=== PATIENT | female | born 1955 | race Caucasian/White ===

== ENCOUNTER → 2018-05-23 13:18 | Outpatient (CLI) | payer OTHER, SELFPAY ==
--- NOTE | 2018-05-23 13:26 | BI_ITS ---
MAMMOGRAPHY - BILATERAL DIAGNOSTIC REASON FOR EXAM: Female, 62 years old. Subcutaneous lump PERTINENT HISTORY: Mother and aunt with breast cancer TECHNIQUE: Digital examination. Mediolateral oblique (MLO) and craniocaudad (CC) views of both breasts were obtained, along with 3-D, tomosynthesis. CAD: CAD was performed on this study. COMPARISON: 07/18/2017 FINDINGS: Breast Composition: There are scattered areas of fibroglandular density. There are no dominant masses or suspicious calcifications. No other significant abnormalities are identified. BI/DIAG MAMM W/CAD, BILAT IMPRESSION: Negative diagnostic mammogram. Yearly followup recommended. ASSESSMENT CATEGORY: BIRADS Category 2: Benign. A letter regarding these results will be sent to the patient by the facility within 30 days. FOLLOW UP RECOMMENDATION: Yearly follow up mammogram recommended. (A) Approximately 10% of breast cancers are not detected by mammography. A normal mammogram should not delay biopsy of a clinically suspicious abnormality. Electronically Signed: Rajeev Garcia MD at 15:15 EDT , Service support ,
== END ==
PROVIDERS: Family Provider Nurse Practitioner; PCP Nurse Practitioner; Visit Provider Nurse Practitioner
DX: N63.11 Unspecified lump in the right breast, upper outer quadrant (principal)
CPT/HCPCS: 77062; 77066; G0279

== ENCOUNTER 2019-03-15 09:05 | Inpatient (IN) | payer OTHER, SELFPAY ==
[2019-03-15] VITALS (22 sets, daily range): BP systolic 88–131; BP diastolic 31–70; PULSE 80–110; RESP 18–38; TEMP 36.1–39.3; O2SAT 91–99; BMI 50.9; BMI 54.7
--- NOTE | 2019-03-15 09:28 | EKG12_ITS ---
Test Reason : SOB Blood Pressure : / mmHG Vent. Rate : 087 BPM Atrial Rate : 087 BPM P-R Int : 166 ms QRS Dur : 128 ms QT Int : 388 ms P-R-T Axes : 073 -12 101 degrees QTc Int : 466 ms Normal sinus rhythm Left bundle branch block Abnormal ECG Confirmed by ARMAND OLIVAS, ANSHU ([id number]), script editor MARIA INES DONALDSON ([id number]) on 03/17/2019 4:02:33 PM Referred By: VIKY Confirmed By:ANSHU ACUNA MD
--- NOTE | 2019-03-15 09:28 | CT_ITS ---
STUDY: CT ABDOMEN AND PELVIS WITHOUT CONTRAST REASON FOR EXAM: Female, 63 years old. Shortness of breath RADIATION DOSAGE (If Supplied By Facility): DLP = ( 1816.22 ) mGycm TECHNIQUE: Transaxial images were obtained from the dome of the diaphragm to the symphysis pubis without oral contrast, and without intravenous contrast. Sagittal and coronal images were reconstructed. Individualized dose optimization techniques were used for this CT. COMPARISON: CT abdomen and pelvis May 26, 2016 FINDINGS: Evaluation of the abdominal viscera is limited in the absence of intravenous contrast. There is a large ventral abdominal hernia. The visualized lung bases are clear. The visualized portions of the heart and pericardium are within normal limits. There are no calcified gallstones present. There is decreased hepatic attenuation. No hepatic lesions are present. The spleen is normal in size. The pancreas demonstrates an unremarkable unenhanced appearance. The adrenal glands are within normal limits. There are no obstructing renal stones. There is no hydronephrosis. Normal visualized stomach. There is no bowel obstruction or inflammation. The appendix is not visualized, but there are no findings to suggest acute appendicitis. The aorta is normal in caliber. There is no abdominal or pelvic free air, free fluid, fluid collection or lymphadenopathy. There are no destructive osseous lesions. CT/Abdomen/Pelvis without Cont IMPRESSION: Fatty liver. No hepatic lesions present. Large ventral abdominal hernia. Electronically Signed: Elio Kelly, at 10:53 EDT Tel , Service support ,
[2019-03-15] MEDS: Ondansetron 4 MG/2 ML Vial IV ×2 (09:50→12:27)
[2019-03-15] MEDS: 0.9% Normal Saline 1,000 ML 150 ML IV (09:50)
[2019-03-15] MEDS: 0.9% Normal Saline 1,000 ML 1000 ML IV ×2 (09:50→18:40)
[2019-03-15 10:06] LABS: D-Dimer Quantitative (DVT/PE) 1.97 FEU/ug/m (0.27-0.49)
[2019-03-15 10:26] LABS: Absolute Lymphocyte Count 0.38 X10^3/ul (0.83-4.51); Absolute Neutrophil Count 7.2 X10^3/uL (2.0-7.7); Differential Indicated SCAN CRITERIA MET; Eosinophil# 0.64 X10^3/uL; Eosinophils% 7.7 % (0-5); Hematocrit 44.1 % (37-47); Hemoglobin 14.6 g/dl (12.0-15.0); Lymphocyte # 0.38 X10^3/ul (4.0); Lymphocyte % 4.6 % (19-41); Mean Corp Hgb Conc 33.1 g/gl (32-36); Mean Corpuscular Hgb 31.5 pg (27.0-32.0); Monocyte# 0.08 X10^3/uL; Neutrophil % 86.7 % (47-70); POSITIVE COUNT NO; POSITIVE DIFFERENTIAL YES; POSITIVE MORPHOLOGY NO; Platelet Count 167 K/mm3 (150-450); RBC Distribution Width CV 13.2 % (11.6-14.6); RBC Distribution Width SD 45.9 fl (35.1-43.9); Red Blood Count 4.64 M/mm3 (4.2-5.4); White Blood Count 8.3 K/mm3 (4.4-11.0)
[2019-03-15 10:33] LABS: Anion Gap 7 (5-15); BUN 15 mg/dL (7-18); BUN/Creat Ratio 15.2 RATIO (10-20); Calcium,Total 8.4 mg/dL (8.5-10.1); Chloride 103 mmol/L (98-107); Creatinine, Serum 0.99 mg/dL (0.55-1.02); EST Glomerular Filtration Rate 61 mL/min (>60); Est Glom Filt Rate - Afr Amer 73 mL/min (>60); Estimated Creatinine Clearance 59.44 ml/min; Glucose 197 mg/dL (74-106); Potassium 3.7 mmol/L (3.5-5.1); Sodium Level 139 mmol/L (136-145)
--- NOTE | 2019-03-15 10:36 | CT_ITS ---
STUDY: CTA CHEST REASON FOR EXAM: Female, 63 years old. Shortness of breath RADIATION DOSAGE (If Supplied By Facility): CTDIvol = ( 19.74 ) mGy, DLP = ( 789.36 ) mGycm TECHNIQUE: The examination was performed with the intravenous administration of 100 IV Isovue 370. Post-processing of the angiographic images was performed, with multiplanar reformation and 3D reconstruction. Individualized dose optimization techniques were used for this CT. COMPARISON: None. FINDINGS: Normal enhancement of the main pulmonary artery and right and left pulmonary arteries. Normal enhancement of the bilateral peripheral pulmonary arteries. There is no demonstrated pulmonary embolism. Normal thoracic aorta and visualized great vessels. There is no demonstrated aortic dissection. Normal heart and pericardium. Normal mediastinum. Normal hilar regions. Normal visualized trachea and bronchi. The lungs are well expanded. Normal pulmonary parenchyma. Areas of left lower lobe atelectasis are present. Normal pleura. Normal chest wall structures. Normal osseous structures. Normal visualized upper abdomen. CT/CTA Chest W/WO Contrast IMPRESSION: Normal CTA chest examination, without a demonstrated pulmonary embolism or arterial dissection. Electronically Signed: Elio Kelly, at 11:30 EDT Tel , Service support ,
[2019-03-15 10:53] LABS: Lactic Acid 3.5 mmol/L (0.4-2.0)
[2019-03-15] MEDS: Acetaminophen 500 MG Tablet 1000 MG PO (11:14)
[2019-03-15 11:37] LABS: Mucous, Urine 0 SEEN /hpf (<or=2+)
[2019-03-15 11:45] LABS: Color, Urine Yellow (Yellow); Glucose, Dipstick Normal (Normal); Ketone-Dipstick Negative (Negative); Leukocyte Esterase-Dipstick 100 /ul (Negative); Nitrite-Dipstick Positive (Negative); Occult Blood-Urine 10 /ul (Negative); Protein-Dipstick 30 mg/dl (Negative); Urine Bilirubin Dipstick Negative (Negative); Urine Clarity Sl. Cloudy (Clear); Urine Urobilinogen Normal (Normal)
[2019-03-15] MEDS: 0.9% Normal Saline 1,000 ML 999 ML IV ×3 (11:58→12:51)
[2019-03-15 12:00] LABS: Bacteria 1+ /hpf (None Seen); Red Blood Cells-Urine 0-5 SEEN /hpf (0-5); Squamous Epithelial Cells - UA 0-5 SEEN /hpf (5-10); White Blood Cells 10-25 SEEN /hpf (0-5)
[2019-03-15] MEDS: Ceftriaxone 1 GM/50 ML BAG IV (12:28)
--- NOTE | 2019-03-15 12:50 | ED.RN ---
FLUID BOLUS OF 4500ML GIVEN TO TREAT HYPOTENSION AND SEPSIS.
--- NOTE | 2019-03-15 12:56 | ED.VISSUMM ---
- ER Visit Summary Date of Service: 03/15/19 Chief Complaint: Shortness of breath, UTI History of Present Illness: The patient is a 63 F whose had UTI for the past 6 weeks or so. She is currently on her third antibiotic. Cultures have been done through her doctor's office which are not available to review at this time. Patient complains of body aches and chills. This morning she had an episode of shortness of breath. She denies cough or chest pain. Physical Examination: Blood pressure is 108/70, temperature 97, heart rate 110, respiratory rate 38, pulse ox 91% on room air. Patient sitting upright in bed. She has chills. Heart is regular rate and rhythm in the 90s at the time of my exam. Lung sounds are grossly clear. Abdomen is soft with minimal tenderness in the suprapubic area. Hypoactive bowel sounds noted. No skin rash or lesions noted. Neuro exam is unremarkable. Test Results: CBC was normal white count with 86% neutrophils. Chemistry studies significant for glucose of 197. Troponin is negative. D-dimer is 1.97. Lactic acid is 3.5. CT the abdomen and pelvis shows fatty liver with ventral abdominal hernia. CTA of the chest is unremarkable. Emergency Department Course and Treatment: After returning from CT patient did drop her blood pressure and had a temperature of 102. She was given Tylenol. IV fluid boluses been ordered. She is now had 2 blood pressure readings with diastolic pressure over 100. Clinically the patient looks improved. She is been given IV Rocephin and blood and urine cultures have been sent. Treatment Plan: [] Disposition: Admit Impression: 1. Cystitis 2. Severe sepsis This note was generated with [employer] dictation software. It may contain incorrect words, spelling, and punctuation that were not noted in review of the chart prior to signing ED Disposition - Plan for ED Patient: Referrals: Jolie Delatorre, JOLENE-C [Primary Care Provider] -
--- NOTE | 2019-03-15 13:06 | PCM.HP.STD ---
Problem List (1) HLD (hyperlipidemia) Status: Acute (2) HTN (hypertension) Status: Chronic (3) Sepsis secondary to UTI Status: Acute (4) Morbid obesity with BMI of 50.0-59.9, adult Status: Acute (5) Diabetes Status: Chronic History of Present Illness Date of Admission: 03/15/19 Chief Complaint: Shortness of breath and UTI The patient is a 63 year old F with PMH as below who presents to the hospital with fevers, chills, and shortness of breath. She states she has had a UTI for the past 6 weeks and is currently on her third antibiotic. She states that she has had urine cultures at her doctor's office which we do not have access to, however I presume that the antibiotics have been appropriate for the organisms grown on her first 2 UTIs, however this last one was obtained on and it appears that the Macrobid she was given was an empiric antibiotic choice. Initially when she presented to the ER she was afebrile, tachycardic, tachypneic without a leukocytosis. She did end up developing a fever, and she was found to have a lactic acid of 3.5, she was given 3 L of normal saline in the ER as well as a dose of Rocephin. Blood and urine cultures have been obtained. She did have an elevated d-dimer and given her shortness of breath underwent a CTA of her chest which was negative for PE, she also had a CT scan of her abdomen and pelvis which was negative for any intra-abdominal pathology Past Medical History Past Medical History (Chronic Problems): Chronic Problems HTN (hypertension) (Chronic) Diabetes (Chronic) Allergies No Known Allergies Allergy (Verified 03/15/19 09:07) Home Medications: Ambulatory Orders Medication Instructions Recorded Multivitamins,Therapeutic 1 tablet PO BID 09/10/14 [Multivitamin] Aspirin [Aspirin, Baby] 81 mg PO DAILY@0800 03/15/19 Flaxseed Oil 1,000 mg PO DAILY 03/15/19 Krill Oil 1,000 mg PO DAILY 03/15/19 L.acidoph,Paracasei, B.lactis 1 each PO TID 03/15/19 [Probiotic] Lisinopril [Zestril] 5 mg PO DAILY 03/15/19 Metformin(XR) [Glucophage Xr] 500 mg PO BID 03/15/19 Rosuvastatin Calcium 10 mg PO QHS 03/15/19 Vitamin E 400 unit PO DAILY 03/15/19 Surgical History: total knee arthroplasty - Bilateral Smoking Status: Never smoker Alcohol: None Drugs: None - *Family History Maternal History Items: COPD, Diabetes, Heart Disease Paternal History Items: Diabetes, Heart Disease Review of Systems Constitutional: Reports: Chills, Fever. Denies: Weight Change HEENT: Denies: Head Aches, Sinus Congestion, Sinus Drainage Cardiovascular: Denies: Chest Pain, Palpitations Respiratory: Reports: Shortness of Breath. Denies: Cough, Shortness of breath at rest, Sputum production Gastrointestinal: Denies: Abdominal Pain, Nausea, Vomiting Genitourinary: Reports: Dysuria Musculoskeletal: Denies: Joint Pain, Joint Tenderness Skin: Denies: Rash, Wounds Neurological: Denies: Numbness, Tingling, Focal weakness Psychiatric: Denies: Anxiety, Depression Hematologic/ Lymphatic: Denies: Easy Bruising, Easy Bleeding VTE Information - Inpt Only VTE Present on Admission: No Patient Problems: Active and Suspected Problems HLD (hyperlipidemia) (Acute) Sepsis secondary to UTI (Acute) Morbid obesity with BMI of 50.0-59.9, adult (Acute) - Physical Exam General: Alert, Oriented x3, Cooperative, No apparent distress, - - Diaphoretic HEENT: Atraumatic, PERRLA, EOMI, Normocephalic Oral: Dry Mucosa Neck: Supple, No JVD Lungs: Clear to auscultation, Normal air movement, No rhonchi, No wheeze, No rales Cardiovascular: Regular rate, Regular Rhythm, Normal S1, Normal S2, No murmurs Abdomen: Soft, Non Tender, Non-Distended, No Hepato-splenomegaly, Obese - BMI of 50.9 Extremities: No edema, Capillary Refill Less than 3 Seconds Skin: No rashes, No breakdown Neurological: Neuro grossly intact, Sensory exam intact to light touch and pain Psych/Mental Status: Normal Affect, Appropriate Vital Signs Temp Pulse Resp BP Pulse Ox 99.1 F 90 25 H 102/55 L 97 03/15/19 13:00 03/15/19 13:00 03/15/19 13:00 03/15/19 13:00 03/15/19 13:00 Oxygen Flow Rate (L/min) 2 Oxygen Delivery Method Nasal Cannula Weight: 335 lb Body Mass Index (BMI) 50.9 Finger Stick Blood Glucose 126 Laboratory Tests Past 24 Hrs 03/15/19 03/15/19 03/15/19 05:46 05:46 09:46 WBC 8.3 RBC 4.64 Hgb 14.6 Hct 44.1 MCV 95.0 MCH 31.5 MCHC 33.1 RDW 13.2 RDW Differential 45.9 H Plt Count 167 MPV 10.0 Immature Gran % (Auto) 0.000 Neut % (Auto) 86.7 H Lymph % (Auto) 4.6 L [place] % (Auto) 1.0 Eos % (Auto) 7.7 H Baso % (Auto) 0.0 Absolute Neuts (auto) 7.2 Absolute Lymphs (auto) 0.38 L Total Counted Not Reportable D-Dimer Quant (PE/DVT) Sodium Potassium Chloride Carbon Dioxide Anion Gap BUN Creatinine Estim Creat Clear Calc Est GFR (MDRD) Af Amer Est GFR (MDRD) Non-Af BUN/Creatinine Ratio Glucose Lactic Acid 3.5 H Calcium Troponin I Urine Color Urine Clarity Urine pH Ur Specific [place] Urine Protein Urine Glucose (UA) Urine Ketones Urine Occult Blood Urine Nitrite Urine Bilirubin Urine Urobilinogen Ur Leukocyte Esterase Urine RBC Urine WBC Ur Squamous Epith Cells Urine Bacteria Urine Mucus 03/15/19 03/15/19 03/15/19 09:46 09:46 11:30 WBC RBC Hgb Hct MCV MCH MCHC RDW RDW Differential Plt Count MPV Immature Gran % (Auto) Neut % (Auto) Lymph % (Auto) [place] % (Auto) Eos % (Auto) Baso % (Auto) Absolute Neuts (auto) Absolute Lymphs (auto) Total Counted D-Dimer Quant (PE/DVT) 1.97 H* Sodium 139 Potassium 3.7 Chloride 103 Carbon Dioxide 29.0 Anion Gap 7 BUN 15 Creatinine 0.99 Estim Creat Clear Calc 59.44 Est GFR (MDRD) Af Amer 73 Est GFR (MDRD) Non-Af 61 BUN/Creatinine Ratio 15.2 Glucose 197 H Lactic Acid Calcium 8.4 L Troponin I < 0.015 Urine Color Yellow Urine Clarity Sl. Cloudy Urine pH 5.0 Ur Specific [place] 1.010 Urine Protein 30 H Urine Glucose (UA) Normal Urine Ketones Negative Urine Occult Blood 10 H Urine Nitrite Positive H Urine Bilirubin Negative Urine Urobilinogen Normal Ur Leukocyte Esterase 100 H Urine RBC 0-5 SEEN Urine WBC 10-25 SEEN Ur Squamous Epith Cells 0-5 SEEN Urine Bacteria 1+ Urine Mucus 0 SEEN Assessment/Plan All Active Problems HLD (hyperlipidemia) (Acute) Sepsis secondary to UTI (Acute) Morbid obesity with BMI of 50.0-59.9, adult (Acute) Status post total knee replacement (Acute) Constipation due to pain medication (Acute) Pain due to total left knee replacement (Acute) 1. Sepsis secondary to UTI -She states that this is her third UTI in 6 weeks -She is currently on Macrobid for her doctor's office -unable to obtain medical records or see what the culture data is -Continue with IV fluids at 125 cc/h -Rocephin daily -Urine culture pending -Lactate was 3.5 on admission will follow 2. HTN/HLD -Can restart her statin but will hold her blood pressure medication until she is more stable and her sepsis has resolved -SBP greater than 100 we will continue to monitor -Continue with aspirin 3. DM2/morbid obesity -We will place on Accu-Cheks before meals at bedtime, will hold her metformin in light of her lactic acidosis -Long-acting insulin 10 units nightly as well as a sliding scale insulin -Discussed with her lifestyle modifications for her morbid obesity DVT: Lovenox Code Visit Inpatient E&M: 90046 Init Hosp L3
[2019-03-15 13:51] LABS: Reflex Lactate? Y
[2019-03-15 15:27] LABS: Lactic Acid 1.9 mmol/L (0.4-2.0)
[2019-03-15 15:30] LABS: Bedside Glucose 166 mg/dL (70-110)
[2019-03-15] MEDS: Insulin Lispro 100 UNIT/ML INSULN.PEN SQ ×2 (16:47→21:58)
[2019-03-15] MEDS: Ceftriaxone 1 GM/50 mL Premix x1 IV (17:00)
--- NOTE | 2019-03-15 17:16 | NURSING ---
ed re chronic illness deferred till pt fever under control
[2019-03-15] MEDS: Acetaminophen 325 MG Tablet 650 MG PO (18:11)
[2019-03-15] MEDS: Atorvastatin Calcium 20 MG Tablet PO (21:53)
[2019-03-15 22:11] LABS: Bedside Glucose 178 mg/dL (70-110)
[2019-03-16] VITALS (13 sets, daily range): BP systolic 98–131; BP diastolic 50–71; PULSE 79–86; RESP 18–19; TEMP 36.7–37.3; O2SAT 92–97
[2019-03-16] MEDS: 0.9% Normal Saline 1,000 ML 125 ML IV (00:46)
[2019-03-16] MEDS: Acetaminophen 325 MG Tablet 650 MG PO (03:24)
[2019-03-16 06:33] LABS: Absolute Lymphocyte Count 0.51 X10^3/ul (0.83-4.51); Absolute Neutrophil Count 6.2 X10^3/uL (2.0-7.7); Basophil# 0.01 X10^3/uL; Basophil% 0.1 % (0-1); Eosinophil# 1.22 X10^3/uL; Eosinophils% 14.9 % (0-5); Hematocrit 36.8 % (37-47); Hemoglobin 11.9 g/dl (12.0-15.0); Lymphocyte # 0.51 X10^3/ul (4.0); Lymphocyte % 6.2 % (19-41); Mean Corp Hgb Conc 32.3 g/gl (32-36); Mean Corpuscular Hgb 30.4 pg (27.0-32.0); Mean Corpuscular Volume 94.1 fL (81-99); Mean Platelet Vol. 10.5 fl (6.2-12.0); Monocyte# 0.27 X10^3/uL; Monocyte% 3.3 % (0-10); Neutrophil # 6.19 X10^3/uL (2.7-7.7); Neutrophil % 75.4 % (47-70); Platelet Count 169 K/mm3 (150-450); RBC Distribution Width CV 13.6 % (11.6-14.6); Red Blood Count 3.91 M/mm3 (4.2-5.4); White Blood Count 8.2 K/mm3 (4.4-11.0)
[2019-03-16 06:36] LABS: Bedside Glucose 142 mg/dL (70-110)
[2019-03-16 06:45] LABS: Differential Indicated SCAN CRITERIA MET; POSITIVE COUNT NO; POSITIVE DIFFERENTIAL YES; POSITIVE MORPHOLOGY NO
[2019-03-16 07:03] LABS: Differential Comment SCANNED
[2019-03-16 07:33] LABS: Anion Gap 8 (5-15); BUN 14 mg/dL (7-18); BUN/Creat Ratio 18.2 RATIO (10-20); Calcium,Total 7.2 mg/dL (8.5-10.1); Chloride 108 mmol/L (98-107); Creatinine, Serum 0.77 mg/dL (0.55-1.02); EST Glomerular Filtration Rate 81 mL/min (>60); Est Glom Filt Rate - Afr Amer 98 mL/min (>60); Estimated Creatinine Clearance 76.42 ml/min; Glucose 148 mg/dL (74-106); Potassium 3.6 mmol/L (3.5-5.1); Sodium Level 139 mmol/L (136-145)
--- NOTE | 2019-03-16 08:07 | PN_ITS ---
Patient Problems: Active and Suspected Problems HLD (hyperlipidemia) (Acute) Sepsis secondary to UTI (Acute) Morbid obesity with BMI of 50.0-59.9, adult (Acute) Subjective: She is much better today, her sepsis has resolved. She is sitting up in the chair eating breakfast. Vitals/I&O's: Vital Signs Temp Pulse Resp BP Pulse Ox 99.2 F H 83 18 98/56 L 92 03/16/19 05:39 03/16/19 03:21 03/16/19 03:21 03/16/19 03:21 03/16/19 03:21 Oxygen Flow Rate (L/min) 2 Oxygen Delivery Method Room Air Weight: 360 lb Body Mass Index (BMI) 54.7 Finger Stick Blood Glucose 126 Intake and Output for Last 24 Hours 03/14/19 03/15/19 03/16/19 23:59 23:59 23:59 Intake Total 5674 / 5674 3930 / 3930 Balance 5674 / 5674 3930 / 3930 General: Alert, Oriented x3, Cooperative, No apparent distress, HEENT: Atraumatic, PERRLA, EOMI, Normocephalic Oral: Dry Mucosa Neck: Supple, No JVD Lungs: Clear to auscultation, Normal air movement, No rhonchi, No wheeze, No rales Cardiovascular: Regular rate, Regular Rhythm, Normal S1, Normal S2, No murmurs Abdomen: Soft, Non Tender, Non-Distended, No Hepato-splenomegaly, Obese - BMI of 50.9 Extremities: No edema, Capillary Refill Less than 3 Seconds Skin: No rashes, No breakdown Neurological: Neuro grossly intact, Sensory exam intact to light touch and pain Psych/Mental Status: Normal Affect, Appropriate Laboratory Results 03/15/19 05:46: Total Counted Not Reportable 03/15/19 05:46: Lactic Acid 3.5 H 03/15/19 09:46: WBC 8.3, RBC 4.64, Hgb 14.6, Hct 44.1, MCV 95.0, MCH 31.5, MCHC 33.1, RDW 13.2, RDW Differential 45.9 H, Plt Count 167, MPV 10.0, Immature Gran % (Auto) 0.000, Neut % (Auto) 86.7 H, Lymph % (Auto) 4.6 L, [place] % (Auto) 1.0, Eos % (Auto) 7.7 H, Baso % (Auto) 0.0, Absolute Neuts (auto) 7.2, Absolute Lymphs (auto) 0.38 L 03/15/19 09:46: D-Dimer Quant (PE/DVT) 1.97 H* 03/15/19 09:46: Sodium 139, Potassium 3.7, Chloride 103, Carbon Dioxide 29.0, Anion Gap 7, BUN 15, Creatinine 0.99, Estim Creat Clear Calc 59.44, Est GFR (MDRD) Af Amer 73, Est GFR (MDRD) Non-Af 61, BUN/Creatinine Ratio 15.2, Glucose 197 H, Calcium 8.4 L, Troponin I < 0.015 03/15/19 11:30: Urine Color Yellow, Urine Clarity Sl. Cloudy, Urine pH 5.0, Ur Specific [place] 1.010, Urine Protein 30 H, Urine Glucose (UA) Normal, Urine Ketones Negative, Urine Occult Blood 10 H, Urine Nitrite Positive H, Urine Bilirubin Negative, Urine Urobilinogen Normal, Ur Leukocyte Esterase 100 H, Urine RBC 0-5 SEEN, Urine WBC 10-25 SEEN, Ur Squamous Epith Cells 0-5 SEEN, Urine Bacteria 1+, Urine Mucus 0 SEEN 03/15/19 13:26: Lactic Acid 1.9 03/15/19 15:24: POC Glucose 166 H 03/15/19 21:56: POC Glucose 178 H 03/16/19 05:30: Sodium 139, Potassium 3.6, Chloride 108 H, Carbon Dioxide 23.0, Anion Gap 8, BUN 14, Creatinine 0.77, Estim Creat Clear Calc 76.42, Est GFR (MDRD) Af Amer 98, Est GFR (MDRD) Non-Af 81, BUN/Creatinine Ratio 18.2, Glucose 148 H, Calcium 7.2 L 03/16/19 05:30: WBC 8.2, RBC 3.91 L, Hgb 11.9 L, Hct 36.8 L, MCV 94.1, MCH 30.4, MCHC 32.3, RDW 13.6, RDW Differential 45.0 H, Plt Count 169, MPV 10.5, Immature Gran % (Auto) 0.100, Neut % (Auto) 75.4 H, Lymph % (Auto) 6.2 L, [place] % (Auto) 3.3, Eos % (Auto) 14.9 H, Baso % (Auto) 0.1, Absolute Neuts (auto) 6.2, Absolute Lymphs (auto) 0.51 L, Total Counted Not Reportable, Differential Comment SCANNED 03/16/19 06:29: POC Glucose 142 H Current Medications Acetaminophen (Tylenol) 650 mg PO Q6H PRN PRN PRN Reason: Mild pain 1-3/Temp > 100.7 F Last Admin: 03/16/19 03:24 Dose: 650 mg Aspirin (Aspirin, Baby) 81 mg PO DAILY@0800 KARLY Atorvastatin Calcium (Lipitor) 20 mg PO QHS [facility] Last Admin: 03/15/19 21:53 Dose: 20 mg Dextrose (D50w Syringe) 0 gm IV X1 PRN; Protocol PRN Reason: Hypoglycemia Enoxaparin Sodium (Lovenox) 40 mg SC DAILY@1000 KARLY Glucagon () 1 mg IM .X1 PRN PRN Reason: Hypoglycemia Sodium Chloride () 1,000 mls @ 125 mls/hr IV .Q8H [facility] Last Admin: 03/16/19 00:46 Dose: 125 mls/hr Ceftriaxone Sodium 2 gm/ (Sodium Chloride) 50 mls @ 100 mls/hr IV Q24 KARLY Ibuprofen (Motrin) 400 mg PO Q8H PRN PRN PRN Reason: FEVER Insulin Glargine (Lantus (Bkc)) 10 units SC QHS [facility] Last Admin: 03/15/19 21:57 Dose: 10 u Insulin Human Lispro (Humalog Kwikpen (Bkc)) 0 unit SQ ACHS [facility]; Protocol Last Admin: 03/16/19 06:30 Dose: Not Given Nutritional Formula (Lactose Free) (Glucerna Shake) 120 ml PO TIDCM [facility] Last Admin: 03/15/19 18:08 Dose: Not Given Ondansetron HCl (Zofran) 4 mg IV Q8H PRN PRN PRN Reason: NAUSEA/VOMITING Sodium Chloride () 5 - 15 ml IV UD PRN PRN Reason: SALINE FLUSH Medical Necessity - Tobacco Use Smoking Status: Never smoker Assessment/Plan All Active Problems HLD (hyperlipidemia) (Acute) Sepsis secondary to UTI (Acute) Morbid obesity with BMI of 50.0-59.9, adult (Acute) Status post total knee replacement (Acute) Constipation due to pain medication (Acute) Pain due to total left knee replacement (Acute) 1. Sepsis secondary to UTI -She states that this is her third UTI in 6 weeks -She was on Macrobid for her doctor's office -unable to obtain medical records or see what the culture data is -DC fluids allowed her to have a regular diet -Rocephin daily -Urine culture pending -Lactate was 3.5 on admission, repeat was 1.9 -Because she has had so frequent UTIs in the last several weeks, I discussed with her that if she would like to go home today on another empiric antibiotic and wait for cultures to result she could, however she would prefer to wait at least another day to receive another dose of antibiotics tomorrow and also hope by that point we have an identification and sensitivity. Also on Sunday her outpatient physician's office should be open and we may be able to get sensitivities from the urine culture that they had performed on prior to her admission. 2. HTN/HLD -Can restart her statin but will hold her blood pressure medication until she is more stable and her sepsis has resolved -SBP greater than 100 we will continue to monitor -Continue with aspirin 3. DM2/morbid obesity -We will place on Accu-Cheks before meals at bedtime, will hold her metformin in light of her lactic acidosis -Long-acting insulin 10 units nightly as well as a sliding scale insulin -Discussed with her lifestyle modifications for her morbid obesity DVT: Lovenox Code Visit Inpatient E&M: 09620 Subs Hosp L2
[2019-03-16] MEDS: Aspirin 81 MG TAB.CHEW PO (08:44)
[2019-03-16] MEDS: Enoxaparin 40 MG/0.4 ML Syringe SC (08:45)
[2019-03-16 11:46] LABS: Bedside Glucose 168 mg/dL (70-110)
[2019-03-16] MEDS: Insulin Lispro 100 UNIT/ML INSULN.PEN SQ ×3 (12:23→21:13)
--- NOTE | 2019-03-16 15:10 | NURSING ---
This RN taking over care for pt. Report received from ADAM Rose.
[2019-03-16 17:15] LABS: Bedside Glucose 232 mg/dL (70-110)
[2019-03-16 20:45] LABS: Bedside Glucose 218 mg/dL (70-110)
[2019-03-16] MEDS: Atorvastatin Calcium 20 MG Tablet PO (21:14)
[2019-03-17 01:59] VITALS: PULSE 73
[2019-03-17] MEDS: Acetaminophen 325 MG Tablet 650 MG PO (03:05)
[2019-03-17 03:16] VITALS: BP 121/63; PULSE 72; RESP 19; TEMP 36.8; O2SAT 98
[2019-03-17] MEDS: Insulin Lispro 100 UNIT/ML INSULN.PEN SQ (06:35)
[2019-03-17 06:57] VITALS: PULSE 71
[2019-03-17 07:26] LABS: Bedside Glucose 171 mg/dL (70-110)
[2019-03-17] MEDS: 0.9% NaCl Peripheral Flush Adult/Peds IV ×2 (08:09→09:19)
[2019-03-17] MEDS: Ondansetron 4 MG/2 ML Vial IV (08:10)
[2019-03-17] MEDS: Aspirin 81 MG TAB.CHEW PO (08:17)
[2019-03-17 09:05] VITALS: BP 134/57; PULSE 77; RESP 16; TEMP 36.6; O2SAT 97
[2019-03-17] MEDS: Enoxaparin 40 MG/0.4 ML Syringe SC (09:20)
--- NOTE | 2019-03-17 11:01 | DCINST_ITS ---
- Discharge Diagnoses Current Active Problems: Current Active and Chronic Problems HLD (hyperlipidemia) (Acute) HTN (hypertension) (Chronic) Sepsis secondary to UTI (Acute) Morbid obesity with BMI of 50.0-59.9, adult (Acute) You will use the following diet at home:: Calorie/Carbohydrate Controlled (specify 1200, 1400, etc) - 1800 tommy / day, Cardiac Your food should be the consistency of: Regular Your liquids should be the consistency of: Regular/Thin Discharge Activity: Return to Normal Activity Allergies/Adverse Reactions: Allergies No Known Allergies Allergy (Verified 03/15/19 09:07) Medications to take at Discharge Multivitamins,Therapeutic [Multivitamin] 1 tablet PO BID 09/10/14 Aspirin [Aspirin, Baby] 81 mg PO DAILY@0800 03/15/19 Flaxseed Oil 1,000 mg PO DAILY 03/15/19 Krill Oil 1,000 mg PO DAILY 03/15/19 L.acidoph,Paracasei, B.lactis [Probiotic] 1 each PO TID 03/15/19 Lisinopril [Zestril] 5 mg PO DAILY 03/15/19 Metformin(XR) [Glucophage Xr] 500 mg PO BID 03/15/19 Rosuvastatin Calcium 10 mg PO QHS 03/15/19 Vitamin E 400 unit PO DAILY 03/15/19 Primary Care Physician: Jolie Delatorre NP-C [Primary Care Provider] - Please follow up with your Primary Care Physician in: 1-2 weeks Test Results: Test results from this visit will be discussed in further detail at your follow- up appointment, if applicable. Proposed Discharge Date: 03/17/19
--- NOTE | 2019-03-17 11:11 | PHA.DC.MR ---
Pharmacy Service has performed discharge medication reconciliation for this patient. No new medications prescribed for homegoing use upon pharmacy review. Medications reviewed are previously reported home medications. The patient's discharge medication list was reviewed for discrepancies and discrepancies were resolved. Home Medications Multivitamins,Therapeutic [Multivitamin] 1 tablet PO BID 09/10/14 Aspirin [Aspirin, Baby] 81 mg PO DAILY@0800 03/15/19 Flaxseed Oil 1,000 mg PO DAILY 03/15/19 Krill Oil 1,000 mg PO DAILY 03/15/19 L.acidoph,Paracasei, B.lactis [Probiotic] 1 each PO TID 03/15/19 Lisinopril [Zestril] 5 mg PO DAILY 03/15/19 Metformin(XR) [Glucophage Xr] 500 mg PO BID 03/15/19 Rosuvastatin Calcium 10 mg PO QHS 03/15/19 Vitamin E 400 unit PO DAILY 03/15/19
--- NOTE | 2019-03-17 11:19 | CASEMGMT ---
RN CM Assessment Presentation: UTI Intro role of CM and purpose of RN CM assessment to patient in room. Demographics, PCP and Pharmacy verified. Pt states she is independent, lives with her sister. PCP: Jolie Chirinos NP [facility]erred [facility]acy[facility] Insurance: MMO Prescription Benefit: yes LNOK: sister Living Arrangements: pt did not elaborate but states she is independent, no care needs and no stairs in home. Transportation: drives, states no difficulty getting to physician f/u. DME: none HHC: none Patient DC goals: Home DC PLAN: Home. Saeid ORTEGA RN ACM
--- NOTE | 2019-03-17 15:12 | PCM.DC.SUM ---
<Chito Leyva - Last Filed: 03/17/19 15:12> Discharge Date and Diagnosis Date of Admission: 03/15/19 Date of Discharge: 03/17/19 - Primary Discharge Diagnosis Acute sepsis 2/2 UTI HTN HLD Morbid obesity DMt2 - Secondary Discharge Diagnosis Chronic Problems HTN (hypertension) (Chronic) Diabetes (Chronic) Hospital Course and Treatment Imaging Results: CT/Abdomen/Pelvis without Cont IMPRESSION: Fatty liver. No hepatic lesions present. Large ventral abdominal hernia. CT/CTA Chest W/WO Contrast IMPRESSION: Normal CTA chest examination, without a demonstrated pulmonary embolism or arterial dissection. Operations: None Procedures: None Summary of Care Provided: Hospital Course: The patient is a 63 year old F with pmhx as above recently see at Dr. Louie office and treated with 3 different abx for UTI, who presented to the ER with SOB, fevers, and chills. She did have a fever, tachypnea, and tachycardia, and + UA. D dimer was elevated and a CTA chest was obtained which was unremarkable. She was started on rocephin, urine culture obtained, and she was admitted to the PCU on tele for severe sepsis and UTI (SIRS + lactic acidosis). She responded well to abx. Symptoms completely resolved. Urine culture came back with insignificant growth and she had no further symptoms, so Abx were DCd and she was DCd home in stable condition. Follow up with PCP 1-2 weeks. This patient was seen by Chito Leyva PA-C under the supervision of Dr. Cruz [] - Physical Exam General: Alert, Oriented x3, Cooperative HEENT: Atraumatic, PERRLA, EOMI, Normocephalic Neck: Supple, No JVD, Negative Carotid Bruits Lungs: Clear to auscultation, Normal air movement Cardiovascular: Regular rate, No murmurs Abdomen: Bowel Sounds Present, Soft, Non Tender Extremities: No edema, Capillary Refill Less than 3 Seconds Skin: No rashes, No breakdown Musculoskeletal: No Tenderness to Palpation of Joints or Extremities Neurological: Cranial nerves II-XII grossly intact Psych/Mental Status: Normal Affect, Appropriate, Alert and oriented to time, place, person, mood and affect Vital Signs Temp Pulse Resp BP Pulse Ox 97.8 F 77 16 134/57 H 97 03/17/19 09:05 03/17/19 09:05 03/17/19 09:05 03/17/19 09:05 03/17/19 09:05 Oxygen Flow Rate (L/min) 2 Oxygen Delivery Method Room Air Weight: 359 lb 15.991 oz Body Mass Index (BMI) 54.7 Finger Stick Blood Glucose 126 Intake and Output for Last 24 Hours 03/15/19 03/16/19 03/17/19 23:59 23:59 23:59 Intake Total 5674 / 5674 4370 / 4370 500 / 500 Balance 5674 / 5674 4370 / 4370 500 / 500 Microbiology Past 72 Hours 03/15/19 05:46 Blood Culture - Preliminary Blood Culture (Wb) - Anticubital Left No growth in 48 hours. 03/15/19 11:30 Urine Culture - Final Urine, Clean Catch Mixed Gram Pos & Gram Neg Org POC Glucose 03/17/19 03/16/19 03/16/19 06:32 20:35 16:55 POC Glucose 171 H 218 H 232 H Discharge Diet: Low fat/ Low Cholesterol, 1800 Calorie Control Diet, 2000 mg Sodium Diet Discharge Activity: Return to Normal Activity Home Medications: Medications to take at Discharge Multivitamins,Therapeutic [Multivitamin] 1 tablet PO BID 09/10/14 Aspirin [Aspirin, Baby] 81 mg PO DAILY@0800 03/15/19 Flaxseed Oil 1,000 mg PO DAILY 03/15/19 Krill Oil 1,000 mg PO DAILY 03/15/19 L.acidoph,Paracasei, B.lactis [Probiotic] 1 each PO TID 03/15/19 Lisinopril [Zestril] 5 mg PO DAILY 03/15/19 Metformin(XR) [Glucophage Xr] 500 mg PO BID 03/15/19 Rosuvastatin Calcium 10 mg PO QHS 03/15/19 Vitamin E 400 unit PO DAILY 03/15/19 Primary Care Physician: Jolie Delatorre NP-C [Primary Care Provider] - Please follow up with your Primary Care Physician in: 1-2 weeks Disposition: Home Minutes spent on discharge:: 35 Patient Condition:: Stable Medical Necessity - Tobacco Use Smoking Status: Never smoker Meaningful Use Info Meaningful Use Diagnoses (Choose all that apply): None applicable <Byron Cruz - Last Filed: 03/17/19 15:36> Discharge Date and Diagnosis - Secondary Discharge Diagnosis Chronic Problems HTN (hypertension) (Chronic) Diabetes (Chronic) Hospital Course and Treatment Summary of Care Provided: This patient was seen in conjunction with Chito Leyva PA-C . I have independently interviewed and examined the patient and reviewed pertinent historical, laboratory, and other data. Please refer to Chito Leyva PA-C note for details of this patient's presentation, findings, and recommendations. I have reviewed Chito Leyva PA-C note and concur with documented findings. In brief, patient is 63-year-old lady admitted with fever and chills as well as shortness of breath CTA of the chest was negative for PE urinalysis was consistent with a UTI treated with Rocephin cultures however came back mixed organisms. Antibiotics discontinued Hospital course as documented above by Chito Leyva PA-C - Physical Exam Vital Signs Temp Pulse Resp BP Pulse Ox 97.8 F 77 16 134/57 H 97 03/17/19 09:05 03/17/19 09:05 03/17/19 09:05 03/17/19 09:05 03/17/19 09:05 Oxygen Flow Rate (L/min) 2 Oxygen Delivery Method Room Air Weight: 163.293 kg Body Mass Index (BMI) 54.7 Finger Stick Blood Glucose 126 Intake and Output for Last 24 Hours 03/15/19 03/16/19 03/17/19 23:59 23:59 23:59 Intake Total 5674 / 5674 4370 / 4370 500 / 500 Balance 5674 / 5674 4370 / 4370 500 / 500 Microbiology Past 72 Hours 03/15/19 05:46 Blood Culture - Preliminary Blood Culture (Wb) - Anticubital Left No growth in 48 hours. 03/15/19 11:30 Urine Culture - Final Urine, Clean Catch Mixed Gram Pos & Gram Neg Org POC Glucose 03/17/19 03/16/19 03/16/19 06:32 20:35 16:55 POC Glucose 171 H 218 H 232 H Code Visit Inpatient E&M: 21413 Disch Hosp
== END 2019-03-17 11:35 | disposition home or self-care (01) | DRG 872 ==
LOC: ED 09:56 → PCU 13:25
PROVIDERS: Admitting Provider Family Medicine; Emergency Provider Emergency Medicine; Family Provider Nurse Practitioner; PCP Nurse Practitioner; Visit Provider Internal Medicine
DX: A41.9 Sepsis, unspecified organism (principal); Z68.43 Body mass index [BMI] 50.0-59.9, adult; N39.0 Urinary tract infection, site not specified; E87.2 Acidosis; E66.01 Morbid (severe) obesity due to excess calories; E11.9 Type 2 diabetes mellitus without complications; I10 Essential (primary) hypertension; E78.5 Hyperlipidemia, unspecified; Z87.440 Personal history of urinary (tract) infections; Z79.84 Long term (current) use of oral hypoglycemic drugs; R65.20 Severe sepsis without septic shock
CPT/HCPCS: 36415; 71275; 74176; 80048; 81001; 82962; 83605; 84484; 85025; 85379; 87040; 87086; 87088; 93005; 97802; 99285; J7030; J7040; Q9967; A4216; J0696; J2405

== ENCOUNTER → 2019-05-27 17:46 | Outpatient (CLI) | payer OTHER, SELFPAY ==
[2019-03-15 14:38] VITALS: BMI 54.7
== END ==
PROVIDERS: Family Provider Nurse Practitioner; PCP Nurse Practitioner; Referring Provider Obstetrics & Gynecology; Visit Provider Obstetrics & Gynecology
DX: R30.0 Dysuria (principal)
CPT/HCPCS: 87077; 87086; 87088; 87186

== ENCOUNTER 2019-05-29 19:59 | Inpatient (IN) | payer OTHER, SELFPAY ==
[2019-03-15 14:38] VITALS: BMI 54.7
[2019-05-29 20:00] VITALS: BP 152/82; PULSE 117; RESP 18; TEMP 37.8; O2SAT 95; BMI 53.1
--- NOTE | 2019-05-29 20:27 | EKG12_ITS ---
Test Reason : CP Blood Pressure : / mmHG Vent. Rate : 095 BPM Atrial Rate : 095 BPM P-R Int : 162 ms QRS Dur : 126 ms QT Int : 366 ms P-R-T Axes : 070 -24 099 degrees QTc Int : 459 ms Normal sinus rhythm Left bundle branch block Abnormal ECG Confirmed by HARMONY OLIVAS, WAQAS ([id number]), editor sound MARIA INES DONALDSON ([id number]) on 06/02/2019 1:18:11 PM Referred By: Balaji Cruz Confirmed By:WAQAS ANTUNEZ MD
--- NOTE | 2019-05-29 20:30 | ED.DCSUM_ITS ---
History of Present Illness Chief Complaint: Complaint Informant: Patient, Family Onset: Yesterday Context: Sudden Onset Timing: Continuous Quality: Dysuria, dyspnea and cough Location: and respiratory Current Severity: Moderate Maximum Severity: Moderate Worsened by: Nothing Relieved by: Nothing Associated Symptoms: Shaking chills Narrative: Patient is a 63-year-old woman who presents with dysuria and vulvitis treated with nitrofurantoin and Diflucan. She does report shortness of breath and cough. She complains of thirst, dry mouth lightheadedness and shaking chills. She was recently admitted for severe sepsis secondary to urinary tract infection. She denies headache, visual, ocular auditory symptoms. She denies photophobia. Denies neck pain or neck stiffness. She denies chest discomfort. She has not checked her blood sugar in the last 24 hours. Prior similar symptoms: Yes Recent Illness/Hospitalization: Yes - Past Medical History (1) HLD (hyperlipidemia) Status: Acute (2) Morbid obesity with BMI of 50.0-59.9, adult Status: Acute (3) Sepsis secondary to UTI Status: Acute (4) Diabetes Status: Chronic (5) HTN (hypertension) Status: Chronic Past Medical History - Allergies and Home Meds Allergies/Adverse Reactions: Allergies No Known Allergies Allergy (Verified 05/29/19 20:00) Primary Care Physician: Jolie Delatorre NP-C [Primary Care Provider] - Prior records reviewed: Yes Surgical History: total knee arthroplasty - Bilateral Smoking Status: Never smoker Alcohol: None Drugs: None - Family History Maternal Family History: Reports: COPD, Diabetes, Heart Disease Paternal Family History: Reports: Diabetes, Heart Disease Review of Systems General: Reports: Chills, Fever, Malaise, Sweats. Denies: Subjective, Weight loss, - Eyes: Denies: Visual changes - bilaterally, Blurred Vision - bilaterally, Diplopia ENT: Denies: Bilateral ear pain, Rhinorrhea, Sore throat Cardiovascular: Denies: Chest pain, Palpitations Respiratory: Reports: Dyspnea, Cough, Dyspnea on exertion. Denies: Sputum, Orthopnea, Paroxysmal nocturnal dyspnea Gastrointestinal: Reports: Nausea. Denies: Abdominal pain, Vomiting, Diarrhea, Constipation, Melena, Hematochezia Genitourinary: Reports: Dysuria, Frequency Musculoskeletal: Reports: Myalgias, Arthralgias. Denies: Neck pain, Back pain, Swelling, Extremity Pain, -, - Skin: Denies: Rash, Wounds Neurological: Reports: Weakness. Denies: Headache, Parasthesia, Numbness, -, - Endocrine: Denies: Polyuria, Polydipsia, Heat intolerance, Cold intolerance, -, - Hematologic: Denies: Easy bruising, Easy bleeding, Lymphadenopathy, -, - Allergy: Denies: Uticaria, Swelling of the mouth, Swelling of the tongue, -, - Physical Exam Vital Signs/Narrative: Vital Signs Temp Pulse Resp BP Pulse Ox 05/29/19 20:00 100.0 F H 117 H 18 152/82 H 95 Inital Vital Signs reviewed: Yes General: Well nourished, Well developed, - - Lucy looks ill Head: Normocephalic, Atraumatic Eyes: Perrl, EOMI. Negative for: Pale conjunctiva, Scleral icterus, - ENT: No rhinorrhea, TM's clear, Dry mucous membranes Cardiovascular: Regular rhythm, No murmurs, Normal S1, Normal S2, Tachycardia Respiratory: CTA bilaterally, Chest nontender. Negative for: No distress Abdomen: Soft, Nontender, Nondistended, Normal bowel sounds Back: Nontender, Normal Inspection. Negative for: CVA tenderness Extremities: Nontender, No edema Skin: Normal color, No rash, No Trauma. Negative for: Cyanosis, Diaphoresis, Jaundice Neurological: Alert, Oriented x3, Cranial nerves II-XII grossly intact, Normal Strength, Normal Sensation Psychological: Normal affect, Normal Mood Diagnostic/Tx/Re-eval Impressions Chest X-Ray 05/29/19 21:40 IMPRESSION: Degenerative changes, as described above. No demonstrated acute cardiopulmonary process. There is no major interval change. Electronically Signed: Jc Rubio DO at 21:58 EDT Tel [phone], Service support , 05/29/19 21:40 Chest PA and Lateral [RAD] Stat Laboratory Results 05/29/19 05/29/19 05/29/19 20:54 20:54 20:54 WBC 12.0 H RBC 4.62 Hgb 14.5 Hct 44.3 MCV 95.9 MCH 31.4 MCHC 32.7 RDW Std Deviation 43.7 RDW Coeff of [place] 12.4 Plt Count 203 MPV 10.5 Immature Gran % (Auto) 0.500 Neut % (Auto) 93.8 H Lymph % (Auto) 3.4 L [place] % (Auto) 1.8 Eos % (Auto) 0.3 Baso % (Auto) 0.2 Absolute Neuts (auto) 11.2 H Absolute Lymphs (auto) 0.41 L Nucleated RBC % 0 Differential Comment SEE COMMENT Platelet Estimate ADEQUATE Anisocytosis RARE Macrocytosis RARE Ovalocytes RARE PT 13.2 INR 1.0 APTT 26.4 Sodium 139 Potassium 4.1 Chloride 105 Carbon Dioxide 28.0 Anion Gap 6 BUN 16 Creatinine 1.10 H Estim Creat Clear Calc 53.49 Est GFR (MDRD) Af Amer 65 Est GFR (MDRD) Non-Af 53 L BUN/Creatinine Ratio 14.5 Glucose 177 H Lactic Acid Calcium 8.8 Total Bilirubin 0.60 AST 23 ALT 37 Alkaline Phosphatase 85 Total Protein 7.2 Albumin 3.5 Globulin 3.7 Albumin/Globulin Ratio 0.9 Urine Color Urine Clarity Urine pH Ur Specific [place] Urine Protein Urine Glucose (UA) Urine Ketones Urine Occult Blood Urine Nitrite Urine Bilirubin Urine Urobilinogen Ur Leukocyte Esterase Urine RBC Urine WBC Ur Squamous Epith Cells Urine Bacteria Urine Mucus 05/29/19 05/29/19 20:54 Unknown WBC RBC Hgb Hct MCV MCH MCHC RDW Std Deviation RDW Coeff of [place] Plt Count MPV Immature Gran % (Auto) Neut % (Auto) Lymph % (Auto) [place] % (Auto) Eos % (Auto) Baso % (Auto) Absolute Neuts (auto) Absolute Lymphs (auto) Nucleated RBC % Differential Comment Platelet Estimate Anisocytosis Macrocytosis Ovalocytes PT INR APTT Sodium Potassium Chloride Carbon Dioxide Anion Gap BUN Creatinine Estim Creat Clear Calc Est GFR (MDRD) Af Amer Est GFR (MDRD) Non-Af BUN/Creatinine Ratio Glucose Lactic Acid 2.2 H Calcium Total Bilirubin AST ALT Alkaline Phosphatase Total Protein Albumin Globulin Albumin/Globulin Ratio Urine Color Yellow Urine Clarity Clear Urine pH 5.0 Ur Specific [place] 1.020 Urine Protein 30 H Urine Glucose (UA) 250 H Urine Ketones Negative Urine Occult Blood Negative Urine Nitrite Negative Urine Bilirubin Negative Urine Urobilinogen Normal Ur Leukocyte Esterase 25 H Urine RBC 0 SEEN Urine WBC 0-5 SEEN Ur Squamous Epith Cells 5-10 SEEN Urine Bacteria 0 SEEN Urine Mucus 0 SEEN Her and is not suggestive of infection. Urine culture from yesterday is growing gram-negative fermenting rods. Since patient has lactic acidosis does not appear well with elevated white count will admit for severe sepsis. - Medical Decision Making With fever, shaking chills, tachycardia concern for sepsis. Sepsis work-up was initiated. Chest x-ray was obtained to evaluate for pulmonary source. 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 Appropriate cultures were obtained. Will start on Rocephin for respiratory and urologic coverage. Since patient has fever, white count and abnormal vitals with source she has severe sepsis since her lactate is 2.2. She received 1 g of Rocephin IV piggyback and admitted to PCU ED Disposition - Plan for ED Patient: Disposition: Acute Care Hospital [facility] Diagnosis: Urinary tract infection, Severe sepsis Referrals: Jolie Delatorre, JOLENE-C [Primary Care Provider] -
[2019-05-29 20:46] LABS: Bacteria 0 SEEN /hpf (None Seen); Mucous, Urine 0 SEEN /hpf (<or=2+); Red Blood Cells-Urine 0 SEEN /hpf (0-5)
[2019-05-29 20:48] LABS: Color, Urine Yellow (Yellow); Glucose, Dipstick 250 mg/dl (Normal); Ketone-Dipstick Negative (Negative); Leukocyte Esterase-Dipstick 25 /ul (Negative); Nitrite-Dipstick Negative (Negative); Occult Blood-Urine Negative /ul (Negative); Protein-Dipstick 30 mg/dl (Negative); Urine Bilirubin Dipstick Negative (Negative); Urine Clarity Clear (Clear); Urine Urobilinogen Normal (Normal)
[2019-05-29 20:55] LABS: Squamous Epithelial Cells - UA 5-10 SEEN /hpf (5-10); White Blood Cells 0-5 SEEN /hpf (0-5)
[2019-05-29 20:59] VITALS: BP 108/57; PULSE 96; RESP 23; O2SAT 95
[2019-05-29 21:04] LABS: Absolute Lymphocyte Count 0.41 X10^3/uL (0.83-4.51); Absolute Neutrophil Count 11.2 X10^3/uL (2.0-7.7); Basophil# 0.02 X10^3/uL; Basophil% 0.2 % (0-1); Eosinophil# 0.03 X10^3/uL; Eosinophils% 0.3 % (0-5); Hematocrit 44.3 % (37-47); Hemoglobin 14.5 g/dL (12.0-15.0); Lymphocyte # 0.41 X10^3/ul (4.0); Lymphocyte % 3.4 % (19-41); Mean Corp Hgb Conc 32.7 g/dL (32-36); Mean Corpuscular Hgb 31.4 pg (27.0-32.0); Mean Corpuscular Volume 95.9 fL (81-99); Mean Platelet Vol. 10.5 fl (6.2-12.0); Monocyte# 0.22 X10^3/uL; Monocyte% 1.8 % (0-10); NRBC Flagged by Analyzer 0 % (0-5); Neutrophil # 11.23 X10^3/uL (2.7-7.7); Neutrophil % 93.8 % (47-70); POSITIVE DIFFERENTIAL YES; Platelet Count 203 K/mm3 (150-450); RBC Distribution Width CV 12.4 % (11.6-14.6); RBC Distribution Width SD 43.7 fl (35.1-43.9); Red Blood Count 4.62 M/mm3 (4.2-5.4)
[2019-05-29 21:10] LABS: Differential Indicated SCAN CRITERIA MET
[2019-05-29 21:14] LABS: Partial Thromboplast Time 26.4 Seconds (24.1-36.2); Prothrombin Time (Protime)PT. 13.2 SECONDS (11.7-14.9)
[2019-05-29 21:24] LABS: ALB/GLOB Ratio 0.9 RATIO (0.9-2.4); AST(SGOT) 23 U/L (15-37); Alanine Aminotransfer ALT/SGPT 37 U/L (13-56); Albumin, Serum 3.5 g/dL (3.2-5.0); Alkaline Phosphatase 85 U/L (45-117); Anion Gap 6 (5-15); BUN 16 mg/dL (7-18); BUN/Creat Ratio 14.5 RATIO (10-20); Calcium,Total 8.8 mg/dL (8.5-10.1); Chloride 105 mmol/L (98-107); EST Glomerular Filtration Rate 53 mL/min (>60); Est Glom Filt Rate - Afr Amer 65 mL/min (>60); Estimated Creatinine Clearance 53.49 ml/min; Globulin 3.7 g/dL (2.2-4.2); Glucose 177 mg/dL (74-106); Potassium 4.1 mmol/L (3.5-5.1); Protein, Total 7.2 g/dL (6.4-8.2); Sodium Level 139 mmol/L (136-145)
[2019-05-29] MEDS: Ceftriaxone 1 GM/50 ML BAG IV (21:27)
[2019-05-29] MEDS: 0.9% Normal Saline 1,000 ML 250 ML IV (21:27)
[2019-05-29 21:28] VITALS: BP 120/61; BP 132/65; PULSE 95; PULSE 96; RESP 24; TEMP 39; O2SAT 97; O2SAT 98
[2019-05-29 21:30] LABS: Anisocytosis RARE; Macrocytosis RARE; Ovalocyte RARE; Platelet Estimate ADEQUATE (ADEQ)
--- NOTE | 2019-05-29 21:40 | RAD_ITS ---
STUDY: X-RAY CHEST REASON FOR EXAM: Female, 63 years old. Urinary burning. Treated yesterday for UTI and colitis. Now complaining of chills and shortness of breath. TECHNIQUE: PA and lateral views of the chest. COMPARISON: CTA of the chest, March 15, 2019. Chest, August 19, 2015. FINDINGS: The lungs are clear and expanded. There is no demonstrated pleural abnormality. Normal size heart. Normal mediastinum and ion. Normal visualized pulmonary arteries. Normal visualized aortic arch and descending thoracic aorta. There are diffuse degenerative changes of the visualized thoracic spine. There is degenerative osteoarthritis of the bilateral shoulders. There is no demonstrated abnormality of the visualized soft tissue structures of the upper abdomen. RAD/Chest PA and Lateral IMPRESSION: Degenerative changes, as described above. No demonstrated acute cardiopulmonary process. There is no major interval change. Electronically Signed: Jc Rubio DO at 21:58 EDT Tel [phone], Service support ,
[2019-05-29 21:41] LABS: Lactic Acid 2.2 mmol/L (0.4-2.0)
[2019-05-29] MEDS: Ondansetron 4 MG/2 ML Vial IV (21:59)
[2019-05-29] MEDS: Acetaminophen 500 MG Tablet 1000 MG PO (21:59)
[2019-05-29 22:00] VITALS: BP 115/61; PULSE 93; PULSE 94; RESP 23; RESP 27; TEMP 39.6; O2SAT 97
[2019-05-29 23:09] VITALS: BMI 55.2
--- NOTE | 2019-05-29 23:19 | PCM.HP.STD ---
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 Prior to that, she was a started on nitrofurantoin for burning micturition about 2- 3 days ago and on 05/28 and started on Diflucan for vulvar itching. Currently she denies burning micturition, increased frequency urgency, vaginal/vulvar discharge. In ED, she was noted to have high fever T-max 103.3 Fahrenheit. Heart rate 117/min and pulse ox 95% on room air. Labs in ED shows leukocytosis 12,000 with neutrophil 93%. UA WBC 0-5, squamous epithelial 5-10, nitrite negative. LE 25. Chest x-ray does not show acute change. She has cough and shortness of breath for more than a week from URI which is getting better. He denies COPD or smoking history. Past Medical History Past Medical History (Chronic Problems): Chronic Problems HLD (hyperlipidemia) (Chronic) HTN (hypertension) (Chronic) Morbid obesity with BMI of 50.0-59.9, adult (Chronic) Constipation due to pain medication (Chronic) Diabetes (Chronic) Pain due to total left knee replacement (Chronic) Allergies No Known Allergies Allergy (Verified 05/29/19 20:00) Home Medications: Ambulatory Orders Medication Instructions Recorded Multivitamins,Therapeutic 1 tablet PO DAILY 09/10/14 [Multivitamin] Aspirin [Aspirin, Baby] 81 mg PO DAILY@0800 03/15/19 Flaxseed Oil 1,000 mg PO DAILY 03/15/19 Krill Oil 1,000 mg PO DAILY 03/15/19 L.acidoph,Paracasei, B.lactis 1 each PO TID 03/15/19 [Probiotic] Lisinopril [Zestril] 5 mg PO DAILY 03/15/19 Vitamin E 400 unit PO DAILY 03/15/19 metFORMIN (XR) [Glucophage Xr] 500 mg PO BID 03/15/19 Fluocinonide 1 applic TP BID PRN PRN 05/29/19 Nitrofurantoin Macrocrystals 100 mg PO BID 05/29/19 [Macrobid] Rosuvastatin Calcium 10 mg PO QHS 05/29/19 Surgical History: total knee arthroplasty - Bilateral Smoking Status: Never smoker Alcohol: None Drugs: None - *Family History Maternal History Items: COPD, Diabetes, Heart Disease Paternal History Items: Diabetes, Heart Disease Review of Systems Constitutional: Reports: Chills, Fever, Malaise, Weakness HEENT: Denies: Head Aches, Sinus Congestion, Sinus Drainage Cardiovascular: Denies: Chest Pain, Palpitations Respiratory: Reports: Cough, Shortness of Breath, Shortness of breath upon exertion. Denies: Shortness of breath at rest, Sputum production Gastrointestinal: Denies: Abdominal Pain, Nausea, Vomiting Genitourinary: Denies: Dysuria, Frequency Musculoskeletal: Reports: Back Pain, Joint Pain, Joint stiffness. Denies: Joint Tenderness Skin: Denies: Rash, Wounds Neurological: Reports: Balance problems. Denies: Focal weakness, Numbness, Tingling Psychiatric: Denies: Anxiety, Depression, Homicidal Ideations, Suicidal Ideations Hematologic/ Lymphatic: Denies: Easy Bruising, Easy Bleeding VTE Information - Inpt Only VTE Present on Admission: No VTE Mechan Device Prophylaxis: None VTE Pharm Prophylaxis ordered?: Yes Patient Problems: Active and Suspected Problems Urinary tract infection (Acute) Severe sepsis (Acute) - Physical Exam General: Alert, Oriented x3, Cooperative HEENT: Atraumatic, PERRLA, EOMI, Normocephalic Oral: Dry Mucosa Neck: Supple, No JVD, Negative Carotid Bruits Lungs: Clear to auscultation, No rhonchi, No wheeze, No rales, Diminished - Air entry is diminished probably secondary to morbid obesity Cardiovascular: Regular rate, Regular Rhythm, Normal S1, Normal S2, No murmurs Abdomen: Bowel Sounds Present, Soft, Non Tender, Non-Distended, Hernia - Incisional hernia present, - - Butler catheter inserted in ED. No pus flecks present in urine tube. Although urine looks cloudy. Extremities: Capillary Refill Less than 3 Seconds, Edema Skin: No rashes, No breakdown Musculoskeletal: No Tenderness to Palpation of Joints or Extremities, Arthritic Changes Neurological: Cranial nerves II-XII grossly intact, Deep Tendon Reflexes 2+/4 and Symmetrical, Neuro grossly intact Psych/Mental Status: Normal Affect, Appropriate Vital Signs Temp Pulse Resp BP Pulse Ox 103.3 F H 94 27 H 115/61 97 05/29/19 22:00 05/29/19 22:00 05/29/19 22:00 05/29/19 22:00 05/29/19 22:00 Oxygen Flow Rate (L/min) 2 Oxygen Delivery Method Nasal Cannula Weight: 350 lb Body Mass Index (BMI) 53.1 Finger Stick Blood Glucose 126 Laboratory Tests Past 24 Hrs 05/29/19 05/29/19 05/29/19 20:54 20:54 20:54 WBC 12.0 H RBC 4.62 Hgb 14.5 Hct 44.3 MCV 95.9 MCH 31.4 MCHC 32.7 RDW Std Deviation 43.7 RDW Coeff of [place] 12.4 Plt Count 203 MPV 10.5 Immature Gran % (Auto) 0.500 Neut % (Auto) 93.8 H Lymph % (Auto) 3.4 L [place] % (Auto) 1.8 Eos % (Auto) 0.3 Baso % (Auto) 0.2 Absolute Neuts (auto) 11.2 H Absolute Lymphs (auto) 0.41 L Nucleated RBC % 0 Differential Comment SEE COMMENT Platelet Estimate ADEQUATE Anisocytosis RARE Macrocytosis RARE Ovalocytes RARE PT 13.2 INR 1.0 APTT 26.4 Sodium 139 Potassium 4.1 Chloride 105 Carbon Dioxide 28.0 Anion Gap 6 BUN 16 Creatinine 1.10 H Estim Creat Clear Calc 53.49 Est GFR (MDRD) Af Amer 65 Est GFR (MDRD) Non-Af 53 L BUN/Creatinine Ratio 14.5 Glucose 177 H Lactic Acid Calcium 8.8 Total Bilirubin 0.60 AST 23 ALT 37 Alkaline Phosphatase 85 Total Protein 7.2 Albumin 3.5 Globulin 3.7 Albumin/Globulin Ratio 0.9 Urine Color Urine Clarity Urine pH Ur Specific [place] Urine Protein Urine Glucose (UA) Urine Ketones Urine Occult Blood Urine Nitrite Urine Bilirubin Urine Urobilinogen Ur Leukocyte Esterase Urine RBC Urine WBC Ur Squamous Epith Cells Urine Bacteria Urine Mucus 05/29/19 05/29/19 20:54 Unknown WBC RBC Hgb Hct MCV MCH MCHC RDW Std Deviation RDW Coeff of [place] Plt Count MPV Immature Gran % (Auto) Neut % (Auto) Lymph % (Auto) [place] % (Auto) Eos % (Auto) Baso % (Auto) Absolute Neuts (auto) Absolute Lymphs (auto) Nucleated RBC % Differential Comment Platelet Estimate Anisocytosis Macrocytosis Ovalocytes PT INR APTT Sodium Potassium Chloride Carbon Dioxide Anion Gap BUN Creatinine Estim Creat Clear Calc Est GFR (MDRD) Af Amer Est GFR (MDRD) Non-Af BUN/Creatinine Ratio Glucose Lactic Acid 2.2 H Calcium Total Bilirubin AST ALT Alkaline Phosphatase Total Protein Albumin Globulin Albumin/Globulin Ratio Urine Color Yellow Urine Clarity Clear Urine pH 5.0 Ur Specific [place] 1.020 Urine Protein 30 H Urine Glucose (UA) 250 H Urine Ketones Negative Urine Occult Blood Negative Urine Nitrite Negative Urine Bilirubin Negative Urine Urobilinogen Normal Ur Leukocyte Esterase 25 H Urine RBC 0 SEEN Urine WBC 0-5 SEEN Ur Squamous Epith Cells 5-10 SEEN Urine Bacteria 0 SEEN Urine Mucus 0 SEEN Assessment/Plan All Active Problems Sepsis secondary to UTI (Acute) Urinary tract infection (Acute) Severe sepsis (Acute) Status post total knee replacement (Acute) The patient is a 63 year old F with multiple comorbidities as listed above came to ER with vulvar itching along with fever. Prior to that, she was a started on nitrofurantoin for burning micturition about 2- 3 days ago and on 05/28 and started on Diflucan for vulvar itching. Currently she denies burning micturition, increased frequency urgency, vaginal/vulvar discharge. In ED, she was noted to have high fever T-max 103.3 Fahrenheit. Heart rate 117/min and pulse ox 95% on room air. Labs in ED shows leukocytosis 12,000 with neutrophil 93%. UA WBC 0-5, squamous epithelial 5-10, nitrite negative. LE 25. Chest x-ray does not show acute change. She has cough and shortness of breath for more than a week from URI which is getting better. He denies COPD or smoking history. 1. Severe sepsis (high-grade fever, tachycardia, leukocytosis with lactic acidosis 2.2) most probably secondary to vulvitis/vaginitis or possible partially treated UTI: The patient is being admitted in PCU. On IV fluid normal saline. Urine culture and blood cultures are ordered. She might have partially treated UTI as UA does not have convincing evidence of UTI. Empirically started on IV Rocephin. Urine culture on 05/27 shows gram-negative daina lactose duplicate maker 50,000 20,000 colonies. Patient has been on antibiotic in the past for recurrent UTI. Prior to that she has mixed gram-positive organism in February 2019 when she was admitted for similar symptoms and UTI was ruled out. Also started on Diflucan for vulvitis. Remove Butler catheter in the morning. 2. Recent episode of URI/sinusitis: Currently cough is getting better. Shortness of breath probably secondary to morbid obesity/obesity hypoventilation syndrome or obstructive sleep apnea: Patient will need formal outpatient sleep study. 3. Diabetes mellitus type 2, hypertension and dyslipidemia with morbid obesity BMI 55: Accu-Chek essences and cover with NovoLog sliding scale. Hold metformin. Home medication reconciliation done. 4. Degenerative joint disease status post knee replacement, incisional hernia after surgery for uterine cancer: Patient has been told to lose weight prior to surgery for hernia. DVT prophylaxis: On Lovenox 40 mg subcu daily. Code Visit Inpatient E&M: 33152 Init Hosp L3
[2019-05-29 23:36] VITALS: BP 140/59; PULSE 93; RESP 18; TEMP 37.2; O2SAT 96
[2019-05-29 23:56] LABS: Bedside Glucose 208 mg/dL (70-110)
[2019-05-30] VITALS (11 sets, daily range): BP systolic 101–114; BP diastolic 49–62; PULSE 70–92; RESP 18–20; TEMP 36.6–36.8; O2SAT 93–97
[2019-05-30 01:00] LABS: Reflex Lactate? Y
[2019-05-30] MEDS: Enoxaparin 40 MG/0.4 ML Syringe SC (01:24)
[2019-05-30] MEDS: 0.9% Normal Saline 1,000 ML 100 ML IV (01:27)
[2019-05-30 01:55] LABS: Absolute Lymphocyte Count 0.49 X10^3/uL (0.83-4.51); Absolute Neutrophil Count 11.1 X10^3/uL (2.0-7.7); Basophil# 0.03 X10^3/uL; Basophil% 0.3 % (0-1); Eosinophil# 0.05 X10^3/uL; Eosinophils% 0.4 % (0-5); Hematocrit 40.5 % (37-47); Hemoglobin 13.4 g/dL (12.0-15.0); Lymphocyte # 0.49 X10^3/ul (4.0); Lymphocyte % 4.1 % (19-41); Mean Corp Hgb Conc 33.1 g/dL (32-36); Mean Corpuscular Hgb 31.7 pg (27.0-32.0); Mean Corpuscular Volume 95.7 fL (81-99); Mean Platelet Vol. 10.8 fl (6.2-12.0); Monocyte% 2.5 % (0-10); NRBC Flagged by Analyzer 0 % (0-5); Neutrophil # 11.05 X10^3/uL (2.7-7.7); Neutrophil % 92.3 % (47-70); POSITIVE DIFFERENTIAL YES; Platelet Count 181 K/mm3 (150-450); RBC Distribution Width CV 12.6 % (11.6-14.6); RBC Distribution Width SD 44.7 fl (35.1-43.9); Red Blood Count 4.23 M/mm3 (4.2-5.4)
[2019-05-30 01:58] LABS: Differential Indicated SCAN CRITERIA MET
[2019-05-30 02:08] LABS: Lactic Acid 2.2 mmol/L (0.4-2.0)
[2019-05-30 02:17] LABS: Anion Gap 7 (5-15); BUN 18 mg/dL (7-18); BUN/Creat Ratio 18.5 RATIO (10-20); Calcium,Total 8.4 mg/dL (8.5-10.1); Chloride 105 mmol/L (98-107); Creatinine, Serum 0.97 mg/dL (0.55-1.02); EST Glomerular Filtration Rate 62 mL/min (>60); Est Glom Filt Rate - Afr Amer 75 mL/min (>60); Estimated Creatinine Clearance 60.66 ml/min; Glucose 199 mg/dL (74-106); Hemoglobin A1c 8.1 % (4.2-6.3); Potassium 4.1 mmol/L (3.5-5.1); Sodium Level 138 mmol/L (136-145); Thyroid Stim Hormone (TSH) 1.26 uIU/mL (0.358-3.74)
[2019-05-30 02:22] LABS: Differential Comment SCANNED
[2019-05-30] MEDS: Insulin Lispro 100 UNIT/ML INSULN.PEN SC ×4 (06:24→22:40)
[2019-05-30 06:40] LABS: Bedside Glucose 172 mg/dL (70-110)
[2019-05-30] MEDS: Acetaminophen 325 MG Tablet 650 MG PO (08:07)
[2019-05-30] MEDS: Aspirin 81 MG TAB.CHEW PO (08:09)
[2019-05-30] MEDS: Multivitamins,Therapeutic Tablet 1 TABLET PO (08:10)
[2019-05-30] MEDS: Vitamin E 400 UNITS Capsule PO (08:11)
[2019-05-30] MEDS: Lisinopril 5 MG Tablet PO (08:12)
[2019-05-30 11:10] LABS: Bedside Glucose 166 mg/dL (70-110)
--- NOTE | 2019-05-30 11:47 | PN_ITS ---
Patient Problems: Active and Suspected Problems Urinary tract infection (Acute) Severe sepsis (Acute) Subjective: Patient seen and examined. She was admitted with a complaint of vulval discharge and was found to have severe sepsis due to UTI. Currently on IV ceftriaxone. Patient feels much better today. She denies any fever chills, palpitations or dizziness, chest pain, diarrhea vomiting. Discharge has improved. Review of systems otherwise negative. Labs and vitals reviewed. Vitals/I&O's: Vital Signs Temp Pulse Resp BP Pulse Ox 98.1 F 84 18 110/59 L 93 05/30/19 07:46 05/30/19 09:00 05/30/19 07:46 05/30/19 07:46 05/30/19 07:46 Oxygen Flow Rate (L/min) 2 Oxygen Delivery Method Room Air Weight: 363 lb 5.149 oz Body Mass Index (BMI) 55.2 Finger Stick Blood Glucose 126 Intake and Output for Last 24 Hours 05/28/19 05/29/19 05/30/19 23:59 23:59 23:59 Intake Total 873 / 873 Output Total 200 / 200 Balance 673 / 673 General: Alert, Oriented x3, Cooperative, No apparent distress HEENT: Atraumatic, PERRLA, EOMI, Normocephalic Oral: Moist Mucosa Neck: Supple, No JVD, Negative Carotid Bruits Lungs: Clear to auscultation, Normal air movement, No rhonchi, No wheeze, No rales Cardiovascular: Regular rate, Regular Rhythm, Normal S1, Normal S2, No murmurs Abdomen: Bowel Sounds Present, Soft, Non Tender, Obese, - - large abdominal wall hernia Extremities: No clubbing, No cyanosis, No edema, Capillary Refill Less than 3 Seconds Skin: No rashes, No breakdown Musculoskeletal: No Tenderness to Palpation of Joints or Extremities Lymphatic: No Cervical, Supraclavicular, or Inguinal Adenopathy Neurological: Cranial nerves II-XII grossly intact, Neuro grossly intact Psych/Mental Status: Normal Affect, Appropriate, Alert and oriented to time, place, person, mood and affect Microbiology Past 72 Hours 05/29/19 Unknown Urine, Clean Catch Urine Culture - Preliminary Mixed Gram Pos & Gram Neg Org Laboratory Results 05/29/19 20:54: WBC 12.0 H, RBC 4.62, Hgb 14.5, Hct 44.3, MCV 95.9, MCH 31.4, MCHC 32.7, RDW Std Deviation 43.7, RDW Coeff of [place] 12.4, Plt Count 203, MPV 10.5, Immature Gran % (Auto) 0.500, Neut % (Auto) 93.8 H, Lymph % (Auto) 3.4 L, [place] % (Auto) 1.8, Eos % (Auto) 0.3, Baso % (Auto) 0.2, Absolute Neuts (auto) 11.2 H, Absolute Lymphs (auto) 0.41 L, Nucleated RBC % 0, Differential Comment SEE COMMENT, Platelet Estimate ADEQUATE, Anisocytosis RARE, Macrocytosis RARE, Ovalocytes RARE 05/29/19 20:54: PT 13.2, INR 1.0, APTT 26.4 05/29/19 20:54: Sodium 139, Potassium 4.1, Chloride 105, Carbon Dioxide 28.0, Anion Gap 6, BUN 16, Creatinine 1.10 H, Estim Creat Clear Calc 53.49, Est GFR (MDRD) Af Amer 65, Est GFR (MDRD) Non-Af 53 L, BUN/Creatinine Ratio 14.5, Glucose 177 H, Calcium 8.8, Total Bilirubin 0.60, AST 23, ALT 37, Alkaline Phosp hatase 85, Total Protein 7.2, Albumin 3.5, Globulin 3.7, Albumin/Globulin Ratio 0.9 05/29/19 20:54: Lactic Acid 2.2 H 05/29/19 23:49: POC Glucose 208 H 05/29/19 : Urine Color Yellow, Urine Clarity Clear, Urine pH 5.0, Ur Specific [place] 1.020, Urine Protein 30 H, Urine Glucose (UA) 250 H, Urine Ketones Negative, Urine Occult Blood Negative, Urine Nitrite Negative, Urine Bilirubin Negative, Urine Urobilinogen Normal, Ur Leukocyte Esterase 25 H, Urine RBC 0 SEEN, Urine WBC 0-5 SEEN, Ur Squamous Epith Cells 5-10 SEEN, Urine Bacteria 0 SEEN, Urine Mucus 0 SEEN 05/30/19 01:30: WBC 12.0 H, RBC 4.23, Hgb 13.4, Hct 40.5, MCV 95.7, MCH 31.7, MCHC 33.1, RDW Std Deviation 44.7 H, RDW Coeff of [place] 12.6, Plt Count 181, MPV 10.8, Immature Gran % (Auto) 0.400, Neut % (Auto) 92.3 H, Lymph % (Auto) 4.1 L, [place] % (Auto) 2.5, Eos % (Auto) 0.4, Baso % (Auto) 0.3, Absolute Neuts (auto) 11.1 H, Absolute Lymphs (auto) 0.49 L, Nucleated RBC % 0, Differential Comment SCANNED 05/30/19 01:30: Sodium 138, Potassium 4.1, Chloride 105, Carbon Dioxide 26.0, Anion Gap 7, BUN 18, Creatinine 0.97, Estim Creat Clear Calc 60.66, Est GFR (MDRD) Af Amer 75, Est GFR (MDRD) Non-Af 62, BUN/Creatinine Ratio 18.5, Glucose 199 H, Calcium 8.4 L, TSH 1.26 05/30/19 01:30: Hemoglobin A1c 8.1 H 05/30/19 01:30: Lactic Acid 2.2 H 05/30/19 06:23: POC Glucose 172 H 05/30/19 11:05: POC Glucose 166 H Diagnostic Data Chest X-Ray 05/29/19 21:40 IMPRESSION: Degenerative changes, as described above. No demonstrated acute cardiopulmonary process. There is no major interval change. Electronically Signed: Jc Rubio DO at 21:58 EDT Tel [phone], Service support , Current Medications Acetaminophen (Tylenol) 650 mg PO Q6H PRN PRN PRN Reason: Mild pain 1-3/Temp > 100.7 F Last Admin: 05/30/19 08:07 Dose: 650 mg Documented by: Aspirin (Aspirin, Baby) 81 mg PO DAILY@0800 [facility] Last Admin: 05/30/19 08:09 Dose: 81 mg Documented by: Atorvastatin Calcium (Lipitor) 20 mg PO QHS [facility] Bisacodyl (Dulcolax) 10 mg RECTAL DAILY PRN PRN PRN Reason: Constipation Clobetasol Propionate (Temovate Cream (Bkc)) 1 applic TOPICAL BID PRN PRN PRN Reason: SKIN Dextrose (D50w Syringe) 0 gm IV X1 PRN; Protocol PRN Reason: Hypoglycemia Enoxaparin Sodium (Lovenox) 40 mg SC DAILY [facility] Last Admin: 05/30/19 01:24 Dose: 40 mg Documented by: Glucagon () 1 mg IM .X1 PRN PRN Reason: Hypoglycemia Ceftriaxone Sodium (Rocephin) 1 gm in 50 mls @ 100 mls/hr IV Q24H [facility] Fluconazole (Diflucan) 200 mg in 100 mls @ 100 mls/hr IV Q24 [facility] Last Admin: 05/30/19 08:55 Dose: 100 mls/hr Documented by: Insulin Human Lispro (Humalog Kwikpen (Bkc)) 0 unit SC [facility]; Protocol Last Admin: 05/30/19 06:24 Dose: 2 u Documented by: Lactobacillus Acidophilus (Acidophilus) 1 tablet PO TID [facility] Last Admin: 05/30/19 06:24 Dose: 1 tablet Documented by: Lisinopril (Zestril) 5 mg PO DAILY [facility] Last Admin: 05/30/19 08:12 Dose: 5 mg Documented by: Melatonin (Melatonin) 3 mg PO QHS PRN PRN PRN Reason: INSOMNIA Morphine Sulfate () 2 mg IV Q3H PRN PRN PRN Reason: Severe Pain (7-10/10) Multivitamins (Multivitamin) 1 tablet PO DAILYCM [facility] Last Admin: 05/30/19 08:10 Dose: 1 tablet Documented by: Senna/Docusate Sodium (Senokot-S, Aby-Colace) 2 tablet PO BID PRN PRN PRN Reason: Constipation Vitamin E (Vitamin E) 400 units PO DAILY [facility] Last Admin: 05/30/19 08:11 Dose: 400 units Documented by: Medical Necessity - Tobacco Use Smoking Status: Never smoker Assessment/Plan All Active Problems Sepsis secondary to UTI (Acute) Urinary tract infection (Acute) Severe sepsis (Acute) Status post total knee replacement (Acute) 1. Severe sepsis due to UTI * patient has a history of recurrent UTIs * temperature has settled and she is now SIRS 1/4 (wbc of 12) * on IV ceftriaxone * urine cultured mixed gram positive and gram negative organisms * blood cultures pending * dc Butler catheter * also received Diflucan for vaginal discharge. * 2. Type 2 Diabetes mellitus: * A1C is 8.1 * on ISS. Accuchecks ACHS * metformin on hold * 3. Hypertension: on lisinopril 4. Hyperlipidemia: On statin. 5. Abdominal wall hernia: Occurred after she had surgery for uterine cancer. States she is been told to lose weight prior to having surgery. 6. Super morbid obesity: BMI is 55. Complicates acute care, prognosis and expected recovery. 7. Degenerative joint disease * s/p knee replacement . * stable * 8. Probable SAMANTA: will need outpatient follow up with pulmonology for sleep study DVT prophylaxis: lovenox Code Visit Inpatient E&M: 27477 [facility] Hosp L3
--- NOTE | 2019-05-30 12:27 | CASEMGMT ---
RN CM Assessment Presentation: Sepsis related to UTI Intro role of CM and purpose of RN CM assessment to patient in room. Pt is awake, alert and able to participate in assessment. Demographics, PCP and Pharmacy verified. Pt states she is very independent. No needs identified. PCP: Jolie Delatorre NP Preferred Pharmacy:[facility] Insurance: MMO Prescription Benefit: yes LNOK: sister Moises Michaels Living Arrangements: Lives independently in own home. Denies care needs with ADL's, cooking, shopping, etc. Transportation: drives DME: none HHC: none Patient DC goals: Home DC PLAN: Home. No needs identified. Saeid ORTEGA RN ACM
[2019-05-30 16:26] LABS: Bedside Glucose 165 mg/dL (70-110)
[2019-05-30] MEDS: Ceftriaxone 1 GM/50 ML BAG IV (22:38)
[2019-05-30] MEDS: Atorvastatin Calcium 20 MG Tablet PO (22:38)
[2019-05-30] MEDS: 0.9% NaCl Peripheral Flush Adult/Peds IV (22:50)
[2019-05-30 22:55] LABS: Bedside Glucose 160 mg/dL (70-110)
[2019-05-31] VITALS (10 sets, daily range): BP systolic 111–134; BP diastolic 57–61; PULSE 63–71; RESP 16–18; TEMP 36.5–36.8; O2SAT 94–97
[2019-05-31] MEDS: Insulin Lispro 100 UNIT/ML INSULN.PEN SC ×4 (06:58→21:48)
[2019-05-31 07:06] LABS: Bedside Glucose 178 mg/dL (70-110)
[2019-05-31 07:15] LABS: Absolute Lymphocyte Count 1.03 X10^3/uL (0.83-4.51); Absolute Neutrophil Count 3.5 X10^3/uL (2.0-7.7); Basophil# 0.01 X10^3/uL; Basophil% 0.2 % (0-1); Eosinophil# 0.23 X10^3/uL; Eosinophils% 4.5 % (0-5); Hematocrit 41.6 % (37-47); Hemoglobin 13.4 g/dL (12.0-15.0); Lymphocyte # 1.03 X10^3/ul (4.0); Lymphocyte % 20.2 % (19-41); Mean Corp Hgb Conc 32.2 g/dL (32-36); Mean Corpuscular Hgb 30.7 pg (27.0-32.0); Mean Corpuscular Volume 95.4 fL (81-99); Mean Platelet Vol. 10.9 fl (6.2-12.0); Monocyte# 0.29 X10^3/uL; Monocyte% 5.7 % (0-10); NRBC Flagged by Analyzer 0 % (0-5); Neutrophil # 3.52 X10^3/uL (2.7-7.7); Platelet Count 181 K/mm3 (150-450); RBC Distribution Width CV 12.7 % (11.6-14.6); RBC Distribution Width SD 44.7 fl (35.1-43.9); Red Blood Count 4.36 M/mm3 (4.2-5.4); White Blood Count 5.1 K/mm3 (4.4-11.0)
[2019-05-31 07:36] LABS: BUN 13 mg/dL (7-18); Creatinine, Serum 0.82 mg/dL (0.55-1.02); Estimated Creatinine Clearance 71.76 ml/min; Glucose 174 mg/dL (74-106)
[2019-05-31 07:37] LABS: Anion Gap 4 (5-15); BUN/Creat Ratio 15.9 RATIO (10-20); Calcium,Total 8.5 mg/dL (8.5-10.1); Chloride 105 mmol/L (98-107); EST Glomerular Filtration Rate 75 mL/min (>60); Est Glom Filt Rate - Afr Amer 91 mL/min (>60); Potassium 4.1 mmol/L (3.5-5.1); Sodium Level 137 mmol/L (136-145)
[2019-05-31] MEDS: Aspirin 81 MG TAB.CHEW PO (08:39)
[2019-05-31] MEDS: Multivitamins,Therapeutic Tablet 1 TABLET PO (08:39)
[2019-05-31] MEDS: Enoxaparin 40 MG/0.4 ML Syringe SC (08:39)
[2019-05-31] MEDS: Vitamin E 400 UNITS Capsule PO (08:39)
[2019-05-31] MEDS: Lisinopril 5 MG Tablet PO (08:39)
--- NOTE | 2019-05-31 11:11 | PN_ITS ---
Patient Problems: Active and Suspected Problems Urinary tract infection (Acute) Severe sepsis (Acute) Subjective: Patient seen and examined. She feels well today and has no complaints. Review of systems otherwise negative. Labs and vitals reviewed. Vitals/I&O's: Vital Signs Temp Pulse Resp BP Pulse Ox 98.2 F 71 18 111/57 L 97 05/31/19 09:35 05/31/19 09:35 05/31/19 09:35 05/31/19 09:35 05/31/19 09:35 Oxygen Flow Rate (L/min) 2 Oxygen Delivery Method Room Air Weight: 363 lb 5.149 oz Body Mass Index (BMI) 55.2 Finger Stick Blood Glucose 126 Intake and Output for Last 24 Hours 05/29/19 05/30/19 05/31/19 23:59 23:59 23:59 Intake Total 873 / 873 2118 / 2118 300 / 300 Output Total 200 / 200 1850 / 1850 350 / 350 Balance 673 / 673 268 / 268 -50 / -50 General: Alert, Oriented x3, Cooperative, No apparent distress HEENT: Atraumatic, PERRLA, EOMI, Normocephalic Oral: Moist Mucosa Neck: Supple, No JVD, Negative Carotid Bruits Lungs: Clear to auscultation, Normal air movement, No rhonchi, No wheeze, No rales Cardiovascular: Regular rate, Regular Rhythm, Normal S1, Normal S2, No murmurs Abdomen: Bowel Sounds Present, Soft, Non Tender, Obese, - - large abdominal wall hernia Extremities: No clubbing, No cyanosis, No edema, Capillary Refill Less than 3 Seconds Skin: No rashes, No breakdown Musculoskeletal: No Tenderness to Palpation of Joints or Extremities Lymphatic: No Cervical, Supraclavicular, or Inguinal Adenopathy Neurological: Cranial nerves II-XII grossly intact, Neuro grossly intact Psych/Mental Status: Normal Affect, Appropriate, Alert and oriented to time, place, person, mood and affect Microbiology Past 72 Hours 05/29/19 Unknown Urine, Clean Catch Urine Culture - Final Mixed Gram Pos & Gram Neg Org Laboratory Results 05/30/19 11:05: POC Glucose 166 H 05/30/19 16:17: POC Glucose 165 H 05/30/19 22:39: POC Glucose 160 H 05/31/19 06:25: WBC 5.1, RBC 4.36, Hgb 13.4, Hct 41.6, MCV 95.4, MCH 30.7, MCHC 32.2, RDW Std Deviation 44.7 H, RDW Coeff of [place] 12.7, Plt Count 181, MPV 10.9, Immature Gran % (Auto) 0.400, Neut % (Auto) 69.0, Lymph % (Auto) 20.2, [place] % (Auto) 5.7, Eos % (Auto) 4.5, Baso % (Auto) 0.2, Absolute Neuts (auto) 3.5, Absolute Lymphs (auto) 1.03, Nucleated RBC % 0 05/31/19 06:25: Sodium 137, Potassium 4.1, Chloride 105, Carbon Dioxide 28.0, Anion Gap 4 L, BUN 13, Creatinine 0.82, Estim Creat Clear Calc 71.76, Est GFR (MDRD) Af Amer 91, Est GFR (MDRD) Non-Af 75, BUN/Creatinine Ratio 15.9, Glucose 174 H, Calcium 8.5 05/31/19 06:50: POC Glucose 178 H Current Medications Acetaminophen (Tylenol) 650 mg PO Q6H PRN PRN PRN Reason: Mild pain 1-3/Temp > 100.7 F Last Admin: 05/30/19 08:07 Dose: 650 mg Documented by: Aspirin (Aspirin, Baby) 81 mg PO DAILY@0800 [facility] Last Admin: 05/31/19 08:39 Dose: 81 mg Documented by: Atorvastatin Calcium (Lipitor) 20 mg PO QHS [facility] Last Admin: 05/30/19 22:38 Dose: 20 mg Documented by: Bisacodyl (Dulcolax) 10 mg RECTAL DAILY PRN PRN PRN Reason: Constipation Clobetasol Propionate (Temovate Cream (Bkc)) 1 applic TOPICAL BID PRN PRN PRN Reason: SKIN Dextrose (D50w Syringe) 0 gm IV X1 PRN; Protocol PRN Reason: Hypoglycemia Enoxaparin Sodium (Lovenox) 40 mg SC DAILY [facility] Last Admin: 05/31/19 08:39 Dose: 40 mg Documented by: Glucagon () 1 mg IM .X1 PRN PRN Reason: Hypoglycemia Ceftriaxone Sodium (Rocephin) 1 gm in 50 mls @ 100 mls/hr IV Q24H [facility] Last Admin: 05/30/19 22:38 Dose: 100 mls/hr Documented by: Fluconazole (Diflucan) 200 mg in 100 mls @ 100 mls/hr IV Q24 [facility] Last Admin: 05/31/19 09:37 Dose: 100 mls/hr Documented by: Insulin Human Lispro (Humalog Kwikpen (Bkc)) 0 unit SC ACHS [facility]; Protocol Last Admin: 05/31/19 06:58 Dose: 2 u Documented by: Lactobacillus Acidophilus (Acidophilus) 1 tablet PO TID [facility] Last Admin: 05/31/19 05:41 Dose: 1 tablet Documented by: Lisinopril (Zestril) 5 mg PO DAILY [facility] Last Admin: 05/31/19 08:39 Dose: 5 mg Documented by: Melatonin (Melatonin) 3 mg PO QHS PRN PRN PRN Reason: INSOMNIA Morphine Sulfate () 2 mg IV Q3H PRN PRN PRN Reason: Severe Pain (7-10/10) Multivitamins (Multivitamin) 1 tablet PO DAILYCM [facility] Last Admin: 05/31/19 08:39 Dose: 1 tablet Documented by: Senna/Docusate Sodium (Senokot-S, Aby-Colace) 2 tablet PO BID PRN PRN PRN Reason: Constipation Vitamin E (Vitamin E) 400 units PO DAILY [facility] Last Admin: 05/31/19 08:39 Dose: 400 units Documented by: Medical Necessity - Tobacco Use Smoking Status: Never smoker Assessment/Plan All Active Problems Sepsis secondary to UTI (Acute) Urinary tract infection (Acute) Severe sepsis (Acute) Status post total knee replacement (Acute) 1. Severe sepsis due to UTI * patient has a history of recurrent UTIs * temperature has settled; wbc is down to 5.1 * on IV ceftriaxone * urine cultured mixed gram positive and gram negative organisms * blood cultures pending * dc Butler catheter * on IV diflucan * 2. Type 2 Diabetes mellitus: * A1C is 8.1 * on ISS. Accuchecks ACHS * metformin on hold * 3. Hypertension: on lisinopril 4. Hyperlipidemia: On statin. 5. Abdominal wall hernia: stable. Occurred after she had surgery for uterine cancer. 6. Super morbid obesity: BMI is 55. Complicates acute care, prognosis and expected recovery. 7. Degenerative joint disease * s/p knee replacement . * stable * 8. Probable SAMANTA: will need outpatient follow up with pulmonology for sleep study DVT prophylaxis: lovenox Disposition: for likely dc home tomorrow Code Visit Inpatient E&M: 90066 [facility] Hosp L2
[2019-05-31 11:31] LABS: Bedside Glucose 184 mg/dL (70-110)
[2019-05-31 16:21] LABS: Bedside Glucose 150 mg/dL (70-110)
[2019-05-31] MEDS: Ceftriaxone 1 GM/50 ML BAG IV (21:47)
[2019-05-31] MEDS: 0.9% NaCl Peripheral Flush Adult/Peds IV (21:48)
[2019-05-31] MEDS: Atorvastatin Calcium 20 MG Tablet PO (21:49)
[2019-05-31 23:05] LABS: Bedside Glucose 153 mg/dL (70-110)
[2019-06-01 03:00] VITALS: PULSE 65
[2019-06-01 03:42] VITALS: BP 124/58; PULSE 64; RESP 18; TEMP 36.8; O2SAT 95
[2019-06-01 05:37] LABS: Absolute Lymphocyte Count 1.21 X10^3/uL (0.83-4.51); Basophil# 0.01 X10^3/uL; Basophil% 0.2 % (0-1); Eosinophil# 0.21 X10^3/uL; Eosinophils% 4.4 % (0-5); Hemoglobin 13.5 g/dL (12.0-15.0); Lymphocyte # 1.21 X10^3/ul (4.0); Lymphocyte % 25.4 % (19-41); Mean Corp Hgb Conc 32.1 g/dL (32-36); Mean Corpuscular Hgb 30.7 pg (27.0-32.0); Mean Corpuscular Volume 95.5 fL (81-99); Mean Platelet Vol. 10.5 fl (6.2-12.0); Monocyte# 0.32 X10^3/uL; Monocyte% 6.7 % (0-10); NRBC Flagged by Analyzer 0 % (0-5); Neutrophil % 62.9 % (47-70); Platelet Count 170 K/mm3 (150-450); RBC Distribution Width CV 12.2 % (11.6-14.6); RBC Distribution Width SD 42.8 fl (35.1-43.9); White Blood Count 4.8 K/mm3 (4.4-11.0)
[2019-06-01 05:50] LABS: Anion Gap 7 (5-15); BUN 13 mg/dL (7-18); BUN/Creat Ratio 18.9 RATIO (10-20); Calcium,Total 8.6 mg/dL (8.5-10.1); Chloride 106 mmol/L (98-107); Creatinine, Serum 0.69 mg/dL (0.55-1.02); EST Glomerular Filtration Rate 92 mL/min (>60); Est Glom Filt Rate - Afr Amer 111 mL/min (>60); Estimated Creatinine Clearance 85.28 ml/min; Glucose 164 mg/dL (74-106); Sodium Level 140 mmol/L (136-145)
[2019-06-01] MEDS: Insulin Lispro 100 UNIT/ML INSULN.PEN SC ×2 (07:06→11:54)
[2019-06-01 07:48] VITALS: O2SAT 95
[2019-06-01 08:50] LABS: Bedside Glucose 163 mg/dL (70-110)
[2019-06-01 09:00] VITALS: PULSE 73
[2019-06-01 09:44] VITALS: BP 118/67; PULSE 70; RESP 20; TEMP 36.8; O2SAT 94
[2019-06-01] MEDS: Multivitamins,Therapeutic Tablet 1 TABLET PO (09:49)
[2019-06-01] MEDS: Aspirin 81 MG TAB.CHEW PO (09:49)
[2019-06-01] MEDS: Lisinopril 5 MG Tablet PO (09:49)
[2019-06-01] MEDS: Vitamin E 400 UNITS Capsule PO (09:50)
[2019-06-01] MEDS: FLUCONAZOLE 150 MG TABLET PO (09:57)
--- NOTE | 2019-06-01 10:41 | DCINST_ITS ---
- Discharge Diagnoses Current Active Problems: Current Active and Chronic Problems Urinary tract infection (Acute) Severe sepsis (Acute) You will use the following diet at home:: Cardiac Your food should be the consistency of: Regular Your liquids should be the consistency of: Regular/Thin Discharge Activity: Return to Normal Activity Weight Bearing Status: Weight bearing as tolerated Call your doctor if you observe: Fever of 101 or Higher, Inability to urinate Instructions: Sepsis, Understanding Sepsis, Understanding Urinary Tract Infections (UTIs) Allergies/Adverse Reactions: Allergies No Known Allergies Allergy (Verified 05/29/19 20:00) Medications to take at Discharge Multivitamins,Therapeutic [Multivitamin] 1 tablet PO DAILY 09/10/14 Aspirin [Aspirin, Baby] 81 mg PO DAILY@0800 03/15/19 Flaxseed Oil 1,000 mg PO DAILY 03/15/19 Krill Oil 1,000 mg PO DAILY 03/15/19 L.acidoph,Paracasei, B.lactis [Probiotic] 1 each PO TID 03/15/19 Lisinopril [Zestril] 5 mg PO DAILY 03/15/19 Vitamin E 400 unit PO DAILY 03/15/19 metFORMIN (XR) [Glucophage Xr] 500 mg PO BID 03/15/19 Fluocinonide 1 applic TP BID PRN PRN 05/29/19 Rosuvastatin Calcium 10 mg PO QHS 05/29/19 Cefdinir [Omnicef [equiv]] 300 mg PO Q12H #8 cap 06/01/19 The following prescriptions were given: Cefdinir [Omnicef [equiv]] 300 mg PO Q12H #8 cap Transmission Status: Pending to [id number] Primary Care Physician: Jolie Delatorre NP-C [Primary Care Provider] - Please follow up with your Primary Care Physician in: one week Test Results: Test results from this visit will be discussed in further detail at your follow- up appointment, if applicable. Please Follow Up With: Chasidy Gomez MD When: call office for appointment Proposed Discharge Date: 06/01/19
--- NOTE | 2019-06-01 10:43 | DS.PCM_ITS ---
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 She was admitted via the ED on 05/30/19 with a complaint of fever, vulval itching and discharge. She has been on nitrofurantoin on outpatient basis and started on Diflucan for vulvar itching prior to admission. On admission she was found to be febrile with temperature of 103.3 Fahrenheit and was tachycardic as well. White cell count was elevated at 12,000 though UA was negative for any UTI. Chest x-ray did not show any acute cardiopulmonary process. Lactic acid was elevated at 2.2. She was admitted and managed for severe sepsis due to UTI. She was also managed for vaginal candidiasis. She was started on IV Rocephin. She was also started on Diflucan for candidiasis. Fever resolved and white cell count trended down to 4.8. She remained stable. Blood cultures were negative and urine culture had mixed gram-positive and gram-negative organisms. Patient was discharged on 06/01/2019 with a prescription for p.o. cefdinir. He is to follow-up with her primary care doctor within 1 week. Was also referred to urologist Dr. Ann LABOY on account of recurrent UTIs. Patient counseled to discuss with her PCP about need for probable long-term prophylaxis for recurrent UTI. Patient seen and examined prior to discharge. She complained of some vulval itching. She denied any fever, chills, palpitations dizziness, diarrhea or vomit ing. Reivew of systems was otherwise negative. Labs and vitals reviewed. Home medication reviewed and reconciled. O/E: Vital Signs Height 5 ft 8 in Weight: 363 lb 5.149 oz Weight in Pounds 363.3 lbs Pulse Ox 94 Temperature 98.2 F Pulse Rate 70 Respiratory Rate 20 Blood Pressure 118/67 Blood Pressure Position Semi-Fowlers [] General: Alert, Oriented x3, Cooperative, No apparent distress HEENT: Atraumatic, PERRLA, EOMI, Normocephalic Oral: Moist Mucosa Neck: Supple, No JVD, Negative Carotid Bruits Lungs: Clear to auscultation, Normal air movement, No rhonchi, No wheeze, No rales Cardiovascular: Regular rate, Regular Rhythm, Normal S1, Normal S2, No murmurs Abdomen: Bowel Sounds Present, Soft, Non Tender, Obese, - - large abdominal wall hernia Extremities: No clubbing, No cyanosis, No edema, Capillary Refill Less than 3 Seconds Skin: No rashes, No breakdown Musculoskeletal: No Tenderness to Palpation of Joints or Extremities Lymphatic: No Cervical, Supraclavicular, or Inguinal Adenopathy Neurological: Cranial nerves II-XII grossly intact, Neuro grossly intact Psych/Mental Status: Normal Affect, Appropriate, Alert and oriented to time, place, person, mood and affect Plan as discussed above. Patient Problems: Active and Suspected Problems Urinary tract infection (Acute) Severe sepsis (Acute) - Physical Exam Vital Signs Temp Pulse Resp BP Pulse Ox 98.2 F 70 20 H 118/67 94 06/01/19 09:44 06/01/19 09:44 06/01/19 09:44 06/01/19 09:44 06/01/19 09:44 Oxygen Flow Rate (L/min) 2 Oxygen Delivery Method Room Air Weight: 363 lb 5.149 oz Body Mass Index (BMI) 55.2 Finger Stick Blood Glucose 126 Intake and Output for Last 24 Hours 05/30/19 05/31/19 06/01/19 23:59 23:59 23:59 Intake Total 2118 / 2118 1470 / 2293 1023 / 1023 Output Total 1850 / 1850 2650 / 4500 2950 / 2950 Balance 268 / 268 -1180 / -2207 -1927 / -1927 Microbiology Past 72 Hours 05/29/19 20:54 Blood Culture - Preliminary Blood Culture (Wb) - Anticubital Left No growth in 48 hours. 05/29/19 21:10 Blood Culture - Preliminary Blood Culture (Wb) - Left Hand No growth in 48 hours. 05/29/19 Unknown Urine Culture - Final Urine, Clean Catch Mixed Gram Pos & Gram Neg Org Laboratory Tests Past 24 Hrs 06/01/19 06/01/19 05:00 05:00 WBC 4.8 RBC 4.40 Hgb 13.5 Hct 42.0 MCV 95.5 MCH 30.7 MCHC 32.1 RDW Std Deviation 42.8 RDW Coeff of [place] 12.2 Plt Count 170 MPV 10.5 Immature Gran % (Auto) 0.400 Neut % (Auto) 62.9 Lymph % (Auto) 25.4 [place] % (Auto) 6.7 Eos % (Auto) 4.4 Baso % (Auto) 0.2 Absolute Neuts (auto) 3.0 Absolute Lymphs (auto) 1.21 Nucleated RBC % 0 Sodium 140 Potassium 4.0 Chloride 106 Carbon Dioxide 27.0 Anion Gap 7 BUN 13 Creatinine 0.69 Estim Creat Clear Calc 85.28 Est GFR (MDRD) Af Amer 111 Est GFR (MDRD) Non-Af 92 BUN/Creatinine Ratio 18.9 Glucose 164 H Calcium 8.6 POC Glucose 06/01/19 05/31/19 05/31/19 07:02 21:40 16:09 POC Glucose 163 H 153 H 150 H 05/31/19 11:18 POC Glucose 184 H Discharge Diet: Low fat/ Low Cholesterol Discharge Activity: Return to Normal Activity Weight Bearing Status: Weight bearing as tolerated Call your doctor if you observe: Fever of 101 or Higher, Inability to urinate Home Medications: Medications to take at Discharge Multivitamins,Therapeutic [Multivitamin] 1 tablet PO DAILY 09/10/14 Aspirin [Aspirin, Baby] 81 mg PO DAILY@0800 03/15/19 Flaxseed Oil 1,000 mg PO DAILY 03/15/19 Krill Oil 1,000 mg PO DAILY 03/15/19 L.acidoph,Paracasei, B.lactis [Probiotic] 1 each PO TID 03/15/19 Lisinopril [Zestril] 5 mg PO DAILY 03/15/19 Vitamin E 400 unit PO DAILY 03/15/19 metFORMIN (XR) [Glucophage Xr] 500 mg PO BID 03/15/19 Fluocinonide 1 applic TP BID PRN PRN 05/29/19 Rosuvastatin Calcium 10 mg PO QHS 05/29/19 Cefdinir [Omnicef [equiv]] 300 mg PO Q12H #8 cap 06/01/19 Following Prescrptions Were Given to Patient: Cefdinir [Omnicef [equiv]] 300 mg PO Q12H #8 cap Transmission Status: Received by [id number] Primary Care Physician: Jolie Delatorre NP-C [Primary Care Provider] - Please follow up with your Primary Care Physician in: one week Please Follow Up With: Chasidy Gomez MD When: call office for appointment Patient Instructions: Understanding Urinary Tract Infections (UTIs), Sepsis, Understanding Sepsis Disposition: Home Minutes spent on discharge:: 35 Patient Condition:: Stable Medical Necessity - Tobacco Use Smoking Status: Never smoker Meaningful Use Info Meaningful Use Diagnoses (Choose all that apply): None applicable Code Visit Inpatient E&M: 35203 Disch Hosp
[2019-06-01] MEDS: Ceftriaxone 1 GM/50 ML BAG IV (11:54)
[2019-06-01 12:06] LABS: Bedside Glucose 162 mg/dL (70-110)
--- NOTE | 2019-06-02 14:35 | CASEMGMT ---
RN CM DC PHONE CALL DC DATE: 06/01/19 DC Disposition: Home Diagnosis on Discharge: Sepsis r/t UTI LACE/STRATA: 08/31 Attempted to call pt. Message machine without identifier, message not left. Saeid MCKAYN RN AC
== END 2019-06-01 13:30 | disposition home or self-care (01) | DRG 872 ==
LOC: ED 22:31 → PCU 05-30 01:02
PROVIDERS: Admitting Provider Internal Medicine; Emergency Provider Emergency Medicine; Family Provider Nurse Practitioner; PCP Nurse Practitioner; Referring Provider Internal Medicine; Visit Provider Student in an Organized Health Care Education/Training Program
DX: A41.9 Sepsis, unspecified organism (principal); N39.0 Urinary tract infection, site not specified; Z68.43 Body mass index [BMI] 50.0-59.9, adult; R65.20 Severe sepsis without septic shock; B37.3 Candidiasis of vulva and vagina; E78.5 Hyperlipidemia, unspecified; I10 Essential (primary) hypertension; E66.01 Morbid (severe) obesity due to excess calories; E11.9 Type 2 diabetes mellitus without complications; K59.03 Drug induced constipation; Z96.652 Presence of left artificial knee joint; Z87.440 Personal history of urinary (tract) infections; Z79.82 Long term (current) use of aspirin; Z79.84 Long term (current) use of oral hypoglycemic drugs; Z79.899 Other long term (current) drug therapy
CPT/HCPCS: 36415; 51702; 71046; 80048; 80053; 81001; 82962; 83036; 83605; 84443; 85025; 85610; 85730; 87040; 87086; 87088; 93005; 97802; 99285; J7030; A4216; J2405

== ENCOUNTER → 2019-06-09 14:22 | Outpatient (CLI) | payer OTHER, SELFPAY ==
[2019-05-29 23:09] VITALS: BMI 55.2
--- NOTE | 2019-06-09 14:27 | US_ITS ---
STUDY: RENAL ULTRASOUND - COMPLETE REASON FOR EXAM: Female, 63 years old. UTIs TECHNIQUE: Ultrasound evaluation of the kidneys was performed with real-time and static levine-scale imaging. COMPARISON: None. FINDINGS: RIGHT KIDNEY: Normal location of the right kidney, which is normal in size. The right kidney measures 11.3 x 6.2 x 5.5 cm. There is a normal cortex of the right kidney. The renal cortex measures 2.2 cm. There is no right renal mass or cyst. There are no right renal calculi. There is no right hydronephrosis. DISTAL RIGHT URETER: There is non-visualization of the distal right ureter. There is no demonstrated right ureterovesical junction calculus. There is a visualized right ureteral jet. LEFT KIDNEY: Normal location of the left kidney, which is normal in size. The left kidney measures 11.2 x 5.7 x 6.5 cm. There is a normal cortex of the left kidney. The renal cortex measures 1.6 cm. There is no left renal mass or cyst. There are no left renal calculi. There is no left hydronephrosis. DISTAL LEFT URETER: There is non-visualization of the distal left ureter. There is no demonstrated left ureterovesical junction calculus. There is a visualized left ureteral jet. AORTA: I.V.C.: The IVC is patent. BLADDER: The distended urinary bladder has a volume of 227 ml. The empty urinary bladder has a volume of 0 ml. There is a normal wall thickness of the distended urinary bladder. There is no demonstrated mass within the urinary bladder. There are no demonstrated bladder calculi. US/Kidney and Bladder IMPRESSION: Normal ultrasound of the kidneys and urinary bladder. Electronically Signed: John Estrada, at 3:52 EDT Tel , Service support ,
== END ==
PROVIDERS: Family Provider Nurse Practitioner; PCP Nurse Practitioner; Referring Provider Urology; Visit Provider Urology
DX: N39.0 Urinary tract infection, site not specified (principal)
CPT/HCPCS: 76770

== ENCOUNTER 2019-06-09 14:58 | Outpatient (RCR) | payer OTHER, SELFPAY ==
[2019-05-29 23:09] VITALS: BMI 55.2
== END 2019-06-28 23:59 ==
LOC: DC 14:58
PROVIDERS: Family Provider Nurse Practitioner; PCP Nurse Practitioner; Visit Provider Nurse Practitioner
DX: E11.9 Type 2 diabetes mellitus without complications (principal); Z71.3 Dietary counseling and surveillance
CPT/HCPCS: 97802

== ENCOUNTER → 2019-06-10 07:15 | Outpatient (CLI) | payer OTHER, SELFPAY ==
[2019-05-29 23:09] VITALS: BMI 55.2
--- NOTE | 2019-06-11 08:15 | PFT ---
INTRODUCTION: The patient is a 63-year-old female who presents for pulmonary function studies secondary to a diagnosis of cough. Respiratory therapy reports good patient effort. Bronchodilators were used during testing. INTERPRETATION: Forced expiration spirometry demonstrates no evidence of a large airways obstructive ventilatory defect. There was no significant response to aerosolized bronchodilators, based upon strict ATS criteria. Spirograms are of good quality and plateau normally. Body plethysmography was performed and reveals lung volumes to be within normal limits. Diffusing capacity by single breath CO is severely reduced at 32% of predicted. IMPRESSION: Isolated severe reduction in diffusing capacity, which could be related to an underlying pulmonary vascular disorder such as pulmonary hypertension. Clinical correlation is recommended.
== END ==
PROVIDERS: Family Provider Nurse Practitioner; PCP Nurse Practitioner; Referring Provider Nurse Practitioner; Visit Provider Nurse Practitioner
DX: R05 Cough (principal)
CPT/HCPCS: 94060; 94726; 94729

== ENCOUNTER → 2019-06-23 15:16 | Outpatient (CLI) | payer OTHER, SELFPAY ==
[2019-05-29 23:09] VITALS: BMI 55.2
[2019-06-19 11:04] VITALS: BMI 51.7
--- NOTE | 2019-06-23 15:29 | BI_ITS ---
MAMMOGRAPHY - BILATERAL SCREENING REASON FOR EXAM: Female, 63 years old. Routine annual screening examination. PERTINENT HISTORY: Mother with breast cancer. Aunt with breast cancer. History of uterine carcinoma. TECHNIQUE: Digital bilateral breast alok (3D mammographic acquisition) in the CC and MLO projections. 2-D mediolateral oblique (MLO) and craniocaudad (CC) views of both breasts were obtained. CAD: Full Field Digital Mammography with Computer Added Detection was performed. COMPARISON: Comparison is made with prior examination dated May 23, 2018 and July 18, 2017. FINDINGS: Breast Composition: The breasts are almost entirely fatty. There are no dominant masses or suspicious calcifications. No other significant abnormalities are identified. There has been no significant change since the prior study. BI/SCREEN MAMM (CAD) W/ALOK BILAT IMPRESSION: Stable bilateral screening mammogram. Yearly follow-up mammogram recommended. (A) ASSESSMENT CATEGORY: BIRADS Category 1: Negative. A letter regarding these results will be sent to the patient by the facility within 30 days. Approximately 10% of breast cancers are not detected by mammography. A normal mammogram should not delay biopsy of a clinically suspicious abnormality. [id number] Electronically Signed: Gt Skaggs, at 8:30 EDT , Service support ,
== END ==
PROVIDERS: Family Provider Nurse Practitioner; PCP Nurse Practitioner; Referring Provider Nurse Practitioner; Visit Provider Nurse Practitioner
DX: Z12.31 Encounter for screening mammogram for malignant neoplasm of breast (principal); Z80.3 Family history of malignant neoplasm of breast
CPT/HCPCS: 77063; 77067

== ENCOUNTER → 2019-07-08 10:56 | Outpatient (CLI) | payer OTHER, SELFPAY ==
[2019-06-19 11:04] VITALS: BMI 51.7
[2019-07-08 11:21] VITALS: PULSE 100; PULSE 71; PULSE 85; PULSE 91; PULSE 96; PULSE 97; PULSE 98; O2SAT 94; O2SAT 95; O2SAT 96
--- NOTE | 2019-07-09 08:03 | PCM.PSN.6M ---
PSN 6 Minute Walk Test - 6 Minute Walk Test 6 Minute Walk Test: 6 Minute Walk Test PSN:6-Minute Walk Test Start: 07/08/19 11:21 Freq: Status: Active Protocol: RESP.6MINW Document 07/08/19 11:21 [facility] (Rec: 07/08/19 11:23 [facility] [id number]) 6 Minute Walk Test Date Performed 07/08/19 Time Performed 11:08 Height 5 ft 8 in Weight: 327 lb Weight in Pounds 327.[address]: Juan Carlos Yee Assistive device used: None Pre-test Oxygen Delivery Method Room Air Pulse Ox (%) 95 Pulse Rate (60-100 beats/min) 71 Dyspnea Valerie Scale (0-10) 0 Exertion Valerie Scale (6-20) 11 1st minute Oxygen Delivery Method Room Air Pulse Ox (%) 95 Pulse Rate (60-100 beats/min) 91 2nd minute Oxygen Delivery Method Room Air Pulse Ox (%) 94 Pulse Rate (60-100 beats/min) 97 3rd minute Oxygen Delivery Method Room Air Pulse Ox (%) 94 Pulse Rate (60-100 beats/min) 96 4th minute Oxygen Delivery Method Room Air Pulse Ox (%) 96 Pulse Rate (60-100 beats/min) 97 5th minute Oxygen Delivery Method Room Air Pulse Ox (%) 95 Pulse Rate (60-100 beats/min) 98 6th minute Oxygen Delivery Method Room Air Pulse Ox (%) 95 Pulse Rate (60-100 beats/min) 100 Post-test Oxygen Delivery Method Room Air Pulse Ox (%) 96 Pulse Rate (60-100 beats/min) 85 Dyspnea Valerie Scale (0-10) 0.5 Exertion Valerie Scale (6-20) 12 Full Laps Walked 16 Partial Lap, Number of Tiles Walked 7 Total Distance Walked (ft) 951 - Interpretation Interpretation: The patient ambulated 951 feet over the course of 6 minutes beginning on room air without assistive devices or breaks. Pretesting oxygen saturation was noted to be 95% on room air. With ambulation, the marcy oxygen saturation was 94%. There was no significant exertional oxygen desaturation. - Recommendations Recommendations: There is no indication for the use of supplemental oxygen at this time.
== END ==
PROVIDERS: Family Provider Nurse Practitioner; PCP Nurse Practitioner; Referring Provider Internal Medicine Critical Care Medicine; Visit Provider Internal Medicine Critical Care Medicine
DX: R94.2 Abnormal results of pulmonary function studies (principal)
CPT/HCPCS: 94618

== ENCOUNTER → 2019-07-10 13:51 | Outpatient (CLI) | payer OTHER, SELFPAY ==
[2019-06-19 11:04] VITALS: BMI 51.7
--- NOTE | 2019-07-10 13:55 | ECHOCS_ITS ---
Reason For Study: PULMONARY HYPERTENSION Procedure This was a 2D Doppler, Color Flow transthoracic echocardiogram. The study was technically difficult. Exam performed in department. Left Ventricle Normal size and thickness. The estimated ejection fraction is 55 %. Normal diastology for age. No regional wall motion abnormalities noted. Right Ventricle Normal RV size. Normal systolic function. Atria Normal left atrium. Normal right atrium. No doppler evidence for ASD. Mitral Valve There is no mitral valve stenosis. No mitral valve insufficiency. Tricuspid Valve There is no tricuspid stenosis. Unable to estimate RV systolic pressure due to inadequate jet, pulmonary artery pressure probably normal. Aortic Valve Trisinus/trileaflet aortic valve. There is no aortic stenosis. No aortic valve insufficiency. Pulmonic Valve There is no pulmonic valvular stenosis. No pulmonic valve insufficiency. Great Vessels Normal aortic root. Pericardium/Pleural No pericardial effusion. Medication 22 gauge I.V. with prn adaptor inserted into right arm. Diluted definity 5ml given slow IV push to enhance endocardial definition. MMode/2D Measurements & Calculations LVIDd: 5.2 cm IVSd: 0.97 cm LAV(MOD-sp4): 36.9 ml LVIDs: 3.6 cm LVPWd: 1.0 cm RVDd: 3.6 cm FS: 29.5 % LVAd ap4: 33.5 cm2 SV(MOD-sp4): 64.0 ml SV(sp4-el): 63.3 ml EDV(MOD-sp4): 118.1 ml EDV(sp4-el): 119.6 ml LVAs ap4: 21.6 cm2 ESV(MOD-sp4): 54.1 ml ESV(sp4-el): 56.3 ml EF(MOD-sp4): 54.2 % EF(sp4-el): 52.9 % LA A4 area: 14.5 cm2 RA A4 area: 13.4 cm2 Time Measurements MV dec time: 0.20 sec Doppler Measurements & Calculations MV E max todd: 70.4 cm/sec Lat Peak E' Todd: 12.8 cm/sec Med Peak E' Todd: 8.2 cm/sec MV A max todd: 87.6 cm/sec E/E' lat: 5.5 E/E' med: 8.6 MV E/A: 0.80 Ao V2 max: 174.6 cm/sec LV V1 max: 100.9 cm/sec PA V2 max: 115.1 cm/sec Ao max P.2 mmHg LV V1 max P.1 mmHg Interpretation Summary The study was technically difficult. Diluted definity 5ml given slow IV push to enhance endocardial definition. The estimated ejection fraction is 55 %. Normal diastology for age. The study was technically difficult. Ordering Physician: Juan Carlos Yee Referring Physician: Juan Carlos Yee Performed By: Gianna Penaloza RDCS
== END ==
PROVIDERS: Family Provider Nurse Practitioner; PCP Nurse Practitioner; Referring Provider Internal Medicine Critical Care Medicine; Visit Provider Internal Medicine Critical Care Medicine
DX: I27.20 Pulmonary hypertension, unspecified (principal); R94.2 Abnormal results of pulmonary function studies
CPT/HCPCS: 93306; Q9957; A4216; C8929

== ENCOUNTER 2019-07-10 15:15 | Outpatient (RCR) | payer OTHER, SELFPAY ==
[2019-06-19 11:04] VITALS: BMI 51.7
== END 2019-07-10 23:59 | disposition home or self-care (01) ==
LOC: DC 15:15
PROVIDERS: Family Provider Nurse Practitioner; PCP Nurse Practitioner; Visit Provider Nurse Practitioner
DX: Z71.3 Dietary counseling and surveillance (principal); E11.9 Type 2 diabetes mellitus without complications
CPT/HCPCS: 97803; G0108